=== PATIENT | female | born 1940 | race Caucasian/White ===

== ENCOUNTER 2017-08-14 18:28 | Inpatient (IN) | payer OTHER ==
[~2017-08-14] VITALS: Ht 162.6 cm; Wt 87.1 kg
[~2017-08-14 18:28] MED LIST: KEFLEX500 MG PO
[2017-08-14 18:32] VITALS: BP 151/68
[2017-08-14] MEDS ORDERED: BACTRIM DS TAB1 EACH PO (18:39)
[2017-08-14] MEDS ORDERED: NORVASC10 MG PO (18:40)
[2017-08-14] MEDS ORDERED: CITRATE OF MAG296 M1 PO (18:40)
[2017-08-14] MEDS ORDERED: COZAAR 50 MG TA50 M2 PO (18:40)
[2017-08-14] MEDS ORDERED: NAMENDA 10 MG T10 MG PO ×2 (18:41→18:43)
[2017-08-14] MEDS ORDERED: CALCIUM 600 +1 EAC1 PO (18:41)
[2017-08-14] MEDS ORDERED: UNICOMPLEX M TA1 TA1 PO (18:41)
[2017-08-14] MEDS ORDERED: ASPIRIN325 PO (18:41)
[2017-08-14] MEDS ORDERED: BENADRYL25 MG PO (18:42)
[2017-08-14] MEDS ORDERED: MYRBETRIQ25 MG PO (18:42)
[2017-08-14] MEDS ORDERED: ALLERCLEAR D-21 EACH PO (18:43)
[2017-08-14] MEDS ORDERED: ATENOLOL 50MG T50 M1 PO (18:43)
[2017-08-14] MEDS ORDERED: FIBER0.52 G1 PO (18:45)
[2017-08-14] MEDS ORDERED: FOSAMAX 70 MG T70 MG PO (18:45)
[2017-08-14 19:28] LABS: HEMATOCRIT 39.2 % (37.0-47.0); HEMOGLOBIN 13.2 gm/dL (12.0-15.0); MCHC 33.6 g/dL (28.0-37.0); MCV 92.1 fL (80.0-100.0); MPV 8.4 fl. (7.2-11.1); NUCLEATED RBCS 0 /100WBC; PLATELET COUNT* 193 thou/uL (150-400); RBC 4.25 mil/uL (4.20-5.00); RDW-CV 13.8 % (10.5-14.5); WBC 26.5 thou/uL (4.0-11.0)
[2017-08-14 19:37] LABS: CALCIUM 9.5 mg/dL (8.5-10.1); CREATININE 1.5 mg/dL (0.6-1.3)
[2017-08-14 19:42] LABS: ALBUMIN 2.9 g/dL (3.4-5.0); TOTAL BILIRUBIN 0.9 mg/dL (<0.1-1.0); TOTAL PROTEIN 7.5 g/dL (6.4-8.2)
[2017-08-14 19:54] LABS: ABSOLUTE LYMPHOCYTES 0.8 thou/uL (0.8-5.3); ABSOLUTE MONOCYTES 0.5 thou/uL (0.0-1.2); ABSOLUTE NEUTROPHILS 25.2 thou/uL (1.6-8.1); PLATELET ESTIMATE ADEQUATE
[2017-08-14 21:18] LABS: URINE BILIRUBIN NEGATIVE (Negative); URINE BLOOD NEGATIVE (Negative); URINE CLARITY CLEAR; URINE COLOR YELLOW; URINE GLUCOSE-RANDOM NEGATIVE (Negative); URINE KETONES NEGATIVE (Negative); URINE LEUKOCYTES-REFLEX NEGATIVE (Negative); URINE NITRITE-REFLEX NEGATIVE (Negative); URINE PROTEIN 1+ (Negative); URINE UROBILINOGEN 0.2 E.U./dl (0.2-1.0)
[2017-08-14 23:00] VITALS: BP 156/67
[2017-08-15] VITALS (15 sets, daily range): BP systolic 88–150; BP diastolic 36–64
[2017-08-15 08:06] LABS: HEMATOCRIT 38.4 % (37.0-47.0); HEMOGLOBIN 12.9 gm/dL (12.0-15.0); MCH 31.4 pg (26.0-34.0); MCHC 33.5 g/dL (28.0-37.0); MCV 93.6 fL (80.0-100.0); MPV 9.5 fl. (7.2-11.1); RBC 4.1 mil/uL (4.20-5.00); RDW-CV 14.1 % (10.5-14.5); WBC 27.3 thou/uL (4.0-11.0)
[2017-08-15 08:21] LABS: ALBUMIN 2.2 g/dL (3.4-5.0); CALCIUM 7.8 mg/dL (8.5-10.1); CREATININE 1.4 mg/dL (0.6-1.3); TOTAL BILIRUBIN 0.6 mg/dL (<0.1-1.0); TOTAL PROTEIN 5.6 g/dL (6.4-8.2)
[2017-08-15 09:33] LABS: APTT 33.2 Seconds (25.0-31.3); INR 1.1; PROTIME 11.1 Seconds (9.20-11.50)
--- NOTE | 2017-08-15 10:12 | EKG ---
[place] [address] ELECTROCARDIOGRAM REPORT Name: OCTAVIA DEE Room: [address] ADM IN M.R.#: [id number] Admission: 08/14/17 Attend Phys: Bhavya Reed MD Discharge: Date of : 40 Report #: [id number] THIS REPORT FOR: //name// [facility] ED Test Date: 2017-08-14 Test Time: 22:54:15 Pat Name: OCTAVIA DEE Department: Room: [address] Gender: F Move Coordinator: BALA : 1940 Requested By: Rosey Corcoran Order Number: [id number] Reading MD: Roland Overotn Measurements Intervals [place] Rate: 75 P: 60 [place]: 179 QRS: -6 QRSD: 89 T: -1 QT: 397 QTc: 444 Interpretive Statements Sinus rhythm Ventricular premature complex Probable left atrial enlargement Anterior infarct, old Compared to ECG 08/25/2008 12:51:28 Ventricular premature complex(es) now present Myocardial infarct finding now present Electronically Signed On 08-15-2017 10:12:35 CDT by Roland Overton [email or web address] <ELECTRONICALLY SIGNED> By: Juanito Overton MD, [facility] 08/15/17 1012 2254 2254 Juanito Overton MD, [facility] /EPI
--- NOTE | 2017-08-15 10:15 | EKG ---
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 : 1940 Requested By: Bhvaya Reed Order Number: [id number] Reading MD: Roland Overton Measurements Intervals [place] Rate: 123 P: [place]: QRS: -1 QRSD: 91 T: -59 QT: 341 QTc: 488 Interpretive Statements Atrial fibrillation Anterior infarct, old Borderline ST depression, diffuse leads Compared to ECG 08/25/2008 12:51:28 Myocardial infarct finding now present ST (T wave) deviation now present Sinus rhythm no longer present Electronically Signed On 08-15-2017 10:15:43 CDT by Roland Overton [email or web address] <ELECTRONICALLY SIGNED> By: Juanito Overton MD, [facility] 08/15/17 1015 0640 0640 Juanito Overton MD, [facility] /EPI
--- NOTE | 2017-08-15 10:17 | EKG ---
[place] [address] ELECTROCARDIOGRAM REPORT Name: OCTAVIA DEE Room: [address] ADM IN M.R.#: [id number] Admission: 08/14/17 Attend Phys: Bhavya Reed MD Discharge: Date of : 40 Report #: [id number] THIS REPORT FOR: //name// [facility] Test Date: 2017-08-15 Test Time: 09:47:25 Pat Name: OCTAVIA DEE Department: Room: [address] Gender: F Station Supervisor: [facility] : 1940 Requested By: Bhavya Reed Order Number: [id number] Reading MD: Roland Overton Measurements Intervals [place] Rate: 61 P: 63 [place]: 184 QRS: -3 QRSD: 90 T: -4 QT: 429 QTc: 432 Interpretive Statements Sinus rhythm Anterior infarct, old Compared to ECG 08/25/2008 12:51:28 Myocardial infarct finding now present Electronically Signed On 08-15-2017 10:17:40 CDT by Roland Overton [email or web address] <ELECTRONICALLY SIGNED> By: Juanito Overton MD, [facility] 08/15/17 1017 0947 0947 Juanito Overton MD, [facility] /EPI
[2017-08-16] VITALS (21 sets, daily range): BP systolic 91–135; BP diastolic 34–69
[2017-08-16 02:10] LABS: GLYCOHEMOGLOBIN (HGB A1C) 5.1 % (4.8-5.6)
[2017-08-16 04:44] LABS: ABSOLUTE EOSINOPHILS 0.1 thou/uL (0.0-0.7); ABSOLUTE MONOCYTES 0.9 thou/uL (0.0-1.2); ABSOLUTE NEUTROPHILS 15.9 thou/uL (1.6-8.1); EOSINOPHILS 0.7 %; HEMATOCRIT 31.1 % (37.0-47.0); LYMPHOCYTES 5.4 %; MCH 30.8 pg (26.0-34.0); MCHC 32.8 g/dL (28.0-37.0); MONOCYTES 4.9 %; NUCLEATED RBCS 0 /100WBC; PLATELET COUNT* 166 thou/uL (150-400); RBC 3.31 mil/uL (4.20-5.00); RDW-CV 14.2 % (10.5-14.5); WBC 17.8 thou/uL (4.0-11.0)
[2017-08-16 05:13] LABS: HEMOGLOBIN 10.2 gm/dL (12.0-15.0)
[2017-08-16 05:23] LABS: ALBUMIN 1.8 g/dL (3.4-5.0); CALCIUM 7.1 mg/dL (8.5-10.1); CREATININE 1.4 mg/dL (0.6-1.3); MAGNESIUM 2.3 mg/dL (1.8-2.4); POTASSIUM 4.1 mmol/L (3.5-5.1); TOTAL BILIRUBIN 0.2 mg/dL (<0.1-1.0); TOTAL PROTEIN 4.9 g/dL (6.4-8.2)
--- NOTE | 2017-08-16 12:11 | EKG ---
[place] [address] ELECTROCARDIOGRAM REPORT Name: OCTAVIA DEE Room: [address] ADM IN M.R.#: [id number] Admission: 08/14/17 Attend Phys: Bhavya Reed MD Discharge: Date of : 40 Report #: [id number] THIS REPORT FOR: //name// [facility] Test Date: 2017-08-16 Test Time: 07:06:56 Pat Name: OCTAVIA DEE Department: Room: [address] Gender: F Financial Aid Administrator: TEJAL : 1940 Requested By: Bhavya Reed Order Number: [id number] Reading MD: Roland Overton Measurements Intervals [place] Rate: 107 P: [place]: QRS: -3 QRSD: 88 T: -22 QT: 337 QTc: 450 Interpretive Statements Atrial fibrillation Anterior infarct, old Compared to ECG 08/15/2017 09:47:25 Sinus rhythm no longer present Myocardial infarct finding still present Electronically Signed On 08-16-2017 12:10:54 CDT by Roland Overton [email or web address] <ELECTRONICALLY SIGNED> By: Juanito Overton MD, [facility] 08/16/17 1210 5 5 Juanito Overton MD, [facility] /EPI
[2017-08-17] VITALS (12 sets, daily range): BP systolic 122–158; BP diastolic 41–80
[2017-08-17 02:17] LABS: HEMATOCRIT 30.4 % (37.0-47.0); MCH 31.2 pg (26.0-34.0); MCHC 32.8 g/dL (28.0-37.0); MCV 95.3 fL (80.0-100.0); MPV 8.9 fl. (7.2-11.1); RBC 3.19 mil/uL (4.20-5.00); RDW-CV 13.9 % (10.5-14.5); WBC 12.7 thou/uL (4.0-11.0)
[2017-08-17 02:27] LABS: ALBUMIN 1.7 g/dL (3.4-5.0); CALCIUM 7.6 mg/dL (8.5-10.1); CREATININE 1.4 mg/dL (0.6-1.3); MAGNESIUM 2.4 mg/dL (1.8-2.4); POTASSIUM 4.4 mmol/L (3.5-5.1); TOTAL BILIRUBIN 0.2 mg/dL (<0.1-1.0); TOTAL PROTEIN 5.4 g/dL (6.4-8.2)
--- NOTE | 2017-08-17 12:16 | CON ---
[address] [address] CONSULTATION Name: OCTAVIA DEE Room: [address] IN M.R.#: [id number] Admission: 08/14/17 Attend Phys: Bhavya Reed MD Discharge: Date of : 40 Report #: [id number] THIS REPORT FOR: //name// CC: Ibrahima Reed DATE OF SERVICE: 08/17/2017 INFECTIOUS DISEASE CONSULTATION ATTENDING PHYSICIAN: Dr. Reed. REASON FOR EVALUATION: Cecal perforation complicated by peritonitis with sepsis. HISTORY OF PRESENT ILLNESS: Chart reviewed, the patient examined. This is a 76-year-old with history of some dementia who apparently was doing fairly well; however, 2 days prior to admission, had developed progressive severe abdominal pain that was worsening, associated with nausea, developed fever as well and more recently had developed vomiting, question of adverse drug effect, had been on antibiotics for urinary tract infection. Evaluation including imaging, there is question of some pneumoperitoneum. She was taken emergently to surgery, was found to have perforation of her cecum, large left ovarian cyst, underwent ileocecotomy, [id number]-[id number] ileocolonic anastomosis and excision of left ovarian mass. She was transferred to Intensive Care Unit postop; however, she is slowly responding, still has significant amount of pain. She does have an NG in place, does arouse. She states the pain is somewhat improved. At this point, she is afebrile, not on any significant hemodynamic support. She was empirically placed on piperacillin and tazobactam, culture from the abdominal fluid now with growth of Streptococcus anginosus group. Blood cultures are sterile thus far. ALLERGIES: None known. MEDICATIONS: Include enoxaparin, pantoprazole, insulin, metoprolol, Zosyn, losartan, fentanyl, p.r.n. analgesics, antiemetics. PAST MEDICAL HISTORY: History of Alzheimer disease, chronic constipation, history of bowel obstruction, bladder dysfunction with urinary tract infections. SOCIAL HISTORY: Nonsmoker, no ethanol. FAMILY HISTORY: Noncontributory. REVIEW OF SYSTEMS: Not obtainable. PHYSICAL EXAMINATION: [place] [address] CONSULTATION Name: OCTAVIA DEE Room: [address] IN [facility]#: [id number] Admission: 08/14/17 Attend Phys: Bhavya Reed MD Discharge: Date of : 40 Report #: [id number] GENERAL: She is in moderate distress at this point. She does arouse, seems to make eye contact, appears chronically ill, undernourished. VITAL SIGNS: Temperature 98.4, pulse 64, respiration 18, blood pressure 158/57. SKIN: Warm. HEENT: Nasal cannula oxygen in place. NG tube in place. NECK: Supple. LUNGS: Scattered few coarse breath sounds. HEART: Regular. I do not appreciate any murmur. ABDOMEN: Somewhat distended, soft. She does have a drain in place. There are no overt peritoneal signs. GENITOURINARY: Deferred. RECTAL: Deferred. LABORATORY DATA: Prealbumin of 10.7. CBC: White count of 12.7, H and H 10.0 and 30.4, platelets of 164. Electrolytes: Sodium 141, potassium 4.4, chloride 109, bicarbonate 26, anion gap of 6, BUN and creatinine 22 and 1.4, glucose of 213. LFTs unremarkable. Albumin 1.7, total protein 5.4. Estimated GFR of 37. Cultures described above with strep anginosus group. Blood cultures are sterile thus far. ASSESSMENT: Perforated cecum complicated by peritonitis, we will continue parenteral therapy at this point, she certainly has no immediate ability to take oral. We will add and/or simplify regimen at this point. She is certainly at risk for nosocomial-related infectious complications as well. We will add incentive spirometer, it is clear she is not taking deep breaths. Certainly increasing activity as allowed and wean off support. <ELECTRONICALLY SIGNED> By: José Miguel Urban MD 08/17/17 1216 1045 1123Jocarmelo Urban MD /nt
--- NOTE | 2017-08-17 13:49 | 2DMMODE ---
[place] [address] 2 D/M-MODE ECHOCARDIOGRAM Name: LUIZOCTAVIA HORACIO Room: [address] IN [facility]#: [id number] Admission: 08/14/17 Attend Phys: Bhavya Reed, Discharge: Date of : 40 Date of Service: 08/17/17 1349 Report #: [id number] THIS REPORT FOR: //name// APPROVED REPORT Study performed: 08/17/2017 11:21:42 EXAM: Comprehensive 2D, Doppler, and color-flow Echocardiogram Patient Location: In-Patient Room #: [facility] Status: routine BSA: 1.85 HR: 68 bpm BP: 138/49 mmHg Rhythm: NSR Other Information Study Quality: Good Indications Atrial Fibrillation 2D Dimensions LVEF(%): 78.40 (>50%) IVSd: 9.33 (7-11mm) LVOT Diam: 18.06 (18-24mm) LVDd: 50.94 mm PWd: 10.99 (7-11mm) Ascending Ao: 30.15 (22-36mm) LVDs: 26.86 (25-40mm) Aortic Root: 29.69 mm Langley's LVEF: 78.40 % Volumes Left Atrial Volume (Systole) LA ESV Index: 35.80 mL/m2 Aortic Valve AoV Peak Davian.: 1.54 m/s AO Peak Gr.: 9.44 mmHg LVOT Max P.56 mmHg AO Mean Gr.: 5.33 mmHg LVOT Mean P.83 mmHg LVOT Max V: 1.18 m/s AO V2 VTI: 33.53 cm LVOT Mean V: 0.77 m/s FERNANDA (VTI): 2.28 cm2 LVOT V1 VTI: 29.85 cm Mitral Valve E/A Ratio: 1.70 [place] [address] 2 D/M-MODE ECHOCARDIOGRAM Name: LUIZOCTAVIA HORACIO Room: [address] IN .R.#: [id number] Admission: 08/14/17 Attend Phys: Bhavya Reed, Discharge: Date of : 40 Date of Service: 08/17/17 1349 Report #: [id number] MV Decel. Time: 153.32 ms MV E Max Davian.: 1.53 m/s MV PHT: 44.46 ms MVA (PHT): 4.95 cm2 TDI E/Lateral E': 13.91 E/Medial E': 15.30 Medial E' Davian.: 0.10 m/s Lateral E' Davian.: 0.11 m/s Pulmonary Valve PV Peak Davian.: 0.90 m/s PV Peak Gr.: 3.27 mmHg Tricuspid Valve TR Peak Gr.: 36.26 mmHg RVSP: 41.00 mmHg Left Ventricle The left ventricle is normal size. There is normal LV segmental wall motion. There is normal left ventricular wall thickness. Left ventricular systolic function is normal. The left ventricular ejection fraction is within the normal range. LVEF is 60-65%. The left ventricular diastolic function is normal. Right Ventricle The right ventricle is normal size. The right ventricular systolic function is normal. Atria Left atrium is borderline dilated. The right atrium size is normal. Aortic Valve The aortic valve is normal in structure. No aortic regurgitation is present. There is no aortic valvular stenosis. Mitral Valve The mitral valve is normal in structure. Mild mitral regurgitation. No evidence of mitral valve stenosis. Tricuspid Valve The tricuspid valve is normal in structure. Mild tricuspid regurgitation. The RVSP is 40-45 mmHg. Pulmonic Valve The pulmonary valve is normal in structure. [place] [address] 2 D/M-MODE ECHOCARDIOGRAM Name: OCTAVIA DEE Room: [address] IN .R.#: [id number] Admission: 08/14/17 Attend Phys: Bhavya Reed, Discharge: Date of : 40 Date of Service: 08/17/17 1349 Report #: [id number] Great Vessels The aortic root is normal in size. IVC is normal in size and collapses with >50% inspiration Pericardium There is no pericardial effusion. <Conclusion> The left ventricle is normal size. There is normal left ventricular wall thickness. Left ventricular systolic function is normal. The left ventricular ejection fraction is within the normal range. LVEF is 60-65%. The left ventricular diastolic function is normal. The right ventricle is normal size. Left atrium is borderline dilated. The aortic valve is normal in structure. The mitral valve is normal in structure. Mild mitral regurgitation. The tricuspid valve is normal in structure. Mild tricuspid regurgitation. The RVSP is 40-45 mmHg. IVC is normal in size and collapses with >50% inspiration There is no pericardial effusion. There is normal LV segmental wall motion. <ELECTRONICALLY SIGNED> By: Ibrahima Galdamez MD, FACC 08/17/17 1349 1349 1349 Ibrahima Galdamez MD, FACC /INF
[2017-08-18 05:00] VITALS: BP 153/64
[2017-08-18 05:29] LABS: HEMATOCRIT 34.5 % (37.0-47.0); HEMOGLOBIN 11.2 gm/dL (12.0-15.0); MCH 30.7 pg (26.0-34.0); MCHC 32.5 g/dL (28.0-37.0); MCV 94.4 fL (80.0-100.0); MPV 8.6 fl. (7.2-11.1); NUCLEATED RBCS 0 /100WBC; PLATELET COUNT* 209 thou/uL (150-400); RBC 3.66 mil/uL (4.20-5.00); RDW-CV 13.7 % (10.5-14.5); WBC 13.5 thou/uL (4.0-11.0)
[2017-08-18 05:34] LABS: CALCIUM 7.9 mg/dL (8.5-10.1); CREATININE 1.1 mg/dL (0.6-1.3); MAGNESIUM 1.8 mg/dL (1.8-2.4); PHOSPHORUS* 1.6 mg/dL (2.5-4.9); POTASSIUM 4.2 mmol/L (3.5-5.1)
[2017-08-18 05:55] LABS: ABSOLUTE EOSINOPHILS 0.4 thou/uL (0.0-0.7); ABSOLUTE LYMPHOCYTES 0.9 thou/uL (0.8-5.3); ABSOLUTE MONOCYTES 0.9 thou/uL (0.0-1.2); ABSOLUTE NEUTROPHILS 11.2 thou/uL (1.6-8.1); ANISOCYTOSIS 1+; PLATELET ESTIMATE ADEQUATE; POIKILOCYTOSIS 1+
[2017-08-18 07:30] VITALS: BP 152/68
[2017-08-18 12:27] VITALS: BP 154/76
[2017-08-18 16:00] VITALS: BP 147/66
[2017-08-18 21:03] VITALS: BP 154/82
[2017-08-18 23:35] VITALS: BP 140/67
[2017-08-19 03:57] VITALS: BP 156/77
[2017-08-19 05:32] LABS: HEMATOCRIT 33.5 % (37.0-47.0); HEMOGLOBIN 11.2 gm/dL (12.0-15.0); MCH 31.4 pg (26.0-34.0); MCHC 33.5 g/dL (28.0-37.0); MCV 93.7 fL (80.0-100.0); MPV 8.5 fl. (7.2-11.1); RBC 3.58 mil/uL (4.20-5.00); RDW-CV 13.7 % (10.5-14.5); WBC 14.2 thou/uL (4.0-11.0)
[2017-08-19 05:59] LABS: ALBUMIN 1.5 g/dL (3.4-5.0); CALCIUM 8.2 mg/dL (8.5-10.1); CREATININE 0.9 mg/dL (0.6-1.3); POTASSIUM 3.9 mmol/L (3.5-5.1); TOTAL BILIRUBIN 0.4 mg/dL (<0.1-1.0); TOTAL PROTEIN 5.7 g/dL (6.4-8.2)
[2017-08-19 07:30] VITALS: BP 145/75
[2017-08-19 11:51] VITALS: BP 156/65
[2017-08-19 16:00] VITALS: BP 122/54
[2017-08-19 20:14] VITALS: BP 147/68
[2017-08-20] VITALS: BP 110/71
[2017-08-20 04:00] VITALS: BP 125/65
[2017-08-20 05:03] LABS: HEMATOCRIT 33.5 % (37.0-47.0); HEMOGLOBIN 11.2 gm/dL (12.0-15.0); MCH 30.9 pg (26.0-34.0); MCHC 33.4 g/dL (28.0-37.0); MCV 92.7 fL (80.0-100.0); MPV 8.7 fl. (7.2-11.1); RBC 3.61 mil/uL (4.20-5.00); RDW-CV 13.6 % (10.5-14.5); WBC 12.5 thou/uL (4.0-11.0)
[2017-08-20 05:15] LABS: ALBUMIN 1.4 g/dL (3.4-5.0); CALCIUM 8.3 mg/dL (8.5-10.1); CREATININE 1.1 mg/dL (0.6-1.3); TOTAL BILIRUBIN 0.3 mg/dL (<0.1-1.0); TOTAL PROTEIN 5.7 g/dL (6.4-8.2)
[2017-08-20 05:24] LABS: MAGNESIUM 1.8 mg/dL (1.8-2.4); PHOSPHORUS* 3.3 mg/dL (2.5-4.9)
[2017-08-20 07:53] VITALS: BP 141/67
[2017-08-20 12:02] VITALS: BP 135/93
[2017-08-20 16:00] VITALS: BP 133/52
[2017-08-20 20:00] VITALS: BP 141/58
[2017-08-21] VITALS: BP 124/49
[2017-08-21 02:43] LABS: HEMATOCRIT 30.7 % (37.0-47.0); HEMOGLOBIN 10.2 gm/dL (12.0-15.0); MCHC 33.1 g/dL (28.0-37.0); MCV 93.5 fL (80.0-100.0); MPV 8.9 fl. (7.2-11.1); RBC 3.29 mil/uL (4.20-5.00); RDW-CV 13.9 % (10.5-14.5); WBC 12.1 thou/uL (4.0-11.0)
[2017-08-21 02:46] LABS: CALCIUM 7.9 mg/dL (8.5-10.1); CREATININE 1.1 mg/dL (0.6-1.3); MAGNESIUM 1.4 mg/dL (1.8-2.4); PHOSPHORUS* 3.3 mg/dL (2.5-4.9); POTASSIUM 3.6 mmol/L (3.5-5.1)
[2017-08-21 04:14] VITALS: BP 108/43
[2017-08-21 08:24] VITALS: BP 110/42
[2017-08-21 20:40] VITALS: BP 133/57
[2017-08-22 00:50] VITALS: BP 123/39
[2017-08-22 02:44] LABS: HEMATOCRIT 28.9 % (37.0-47.0); HEMOGLOBIN 9.8 gm/dL (12.0-15.0); MCH 31.2 pg (26.0-34.0); MCHC 33.8 g/dL (28.0-37.0); MCV 92.3 fL (80.0-100.0); MPV 8.8 fl. (7.2-11.1); RBC 3.14 mil/uL (4.20-5.00); RDW-CV 13.8 % (10.5-14.5); WBC 10.6 thou/uL (4.0-11.0)
[2017-08-22 02:48] LABS: CALCIUM 8.2 mg/dL (8.5-10.1); CREATININE 1.3 mg/dL (0.6-1.3); MAGNESIUM 1.8 mg/dL (1.8-2.4)
[2017-08-22 02:55] LABS: URINE BILIRUBIN NEGATIVE (Negative); URINE BLOOD TRACE (Negative); URINE CLARITY CLEAR; URINE COLOR YELLOW; URINE GLUCOSE-RANDOM NEGATIVE (Negative); URINE KETONES NEGATIVE (Negative); URINE LEUKOCYTES-REFLEX NEGATIVE (Negative); URINE NITRITE-REFLEX NEGATIVE (Negative); URINE PROTEIN NEGATIVE (Negative); URINE UROBILINOGEN 0.2 E.U./dl (0.2-1.0)
[2017-08-22 04:54] VITALS: BP 103/41
[2017-08-22 08:10] VITALS: BP 126/41
--- NOTE | 2017-08-22 13:05 | EKG ---
[place] [address] ELECTROCARDIOGRAM REPORT Name: OCTAVIA DEE Room: [address] ADM IN M.R.#: [id number] Admission: 08/14/17 Attend Phys: Bhavya Reed MD Discharge: Date of : 40 Report #: [id number] THIS REPORT FOR: //name// 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: 27 : 1940 Requested By: Isamar Case Order Number: [id number] Reading MD: Nguyễn Brady Measurements Intervals [place] Rate: 95 P: [place]: QRS: 7 QRSD: 85 T: 2 QT: 393 QTc: 494 Interpretive Statements Atrial fibrillation Probable anteroseptal infarct, old Borderline T abnormalities, inferior leads Compared to ECG 08/16/2017 07:06:56 T-wave abnormality now present Myocardial infarct finding still present Electronically Signed On 08-22-2017 13:05:43 CDT by Nguyễn Brady [email or web address] <ELECTRONICALLY SIGNED> By: Nguyễn Brady MD, [facility] 08/22/17 1305 0819 0819 Nguyễn Brady MD, [facility] /EPI
--- NOTE | 2017-08-22 13:09 | EKG ---
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 : 1940 Requested By: Isamar Case Order Number: [id number] Reading MD: Nguyễn Brady Measurements Intervals [place] Rate: 104 P: [place]: QRS: 4 QRSD: 90 T: 0 QT: 376 QTc: 495 Interpretive Statements Atrial fibrillation Anterior infarct, old Borderline T abnormalities, inferior leads Compared to ECG 08/16/2017 07:06:56 T-wave abnormality now present Myocardial infarct finding still present Electronically Signed On 08-22-2017 13:09:05 CDT by Nguyễn Brady [email or web address] <ELECTRONICALLY SIGNED> By: Nguyễn Brady MD, [facility] 08/22/17 1309 0928 0928 Nguyễn Brady MD, [facility] /EPI
[2017-08-22 16:00] VITALS: BP 117/47
[2017-08-22 20:00] VITALS: BP 126/54
[2017-08-23 08:20] VITALS: BP 105/43
[2017-08-23 16:00] VITALS: BP 120/55
[2017-08-23 20:10] VITALS: BP 118/42
[2017-08-24 00:22] VITALS: BP 113/42
[2017-08-24 07:13] LABS: HEMATOCRIT 29.9 % (37.0-47.0); HEMOGLOBIN 9.9 gm/dL (12.0-15.0); MCH 31.1 pg (26.0-34.0); MCV 94.1 fL (80.0-100.0); MPV 8.9 fl. (7.2-11.1); RBC 3.18 mil/uL (4.20-5.00); RDW-CV 14.3 % (10.5-14.5); WBC 11.5 thou/uL (4.0-11.0)
[2017-08-24 07:25] LABS: CALCIUM 7.7 mg/dL (8.5-10.1); CREATININE 1.4 mg/dL (0.6-1.3); MAGNESIUM 1.7 mg/dL (1.8-2.4); PHOSPHORUS* 3.5 mg/dL (2.5-4.9); POTASSIUM 3.8 mmol/L (3.5-5.1)
[2017-08-24 07:53] VITALS: BP 118/62
--- NOTE | 2017-08-24 13:54 | OP ---
[facility] [address] [place] [address] OPERATIVE REPORT Name: OCTAVIA DEE Room: [address] IN M.R.#: [id number] Admission: 08/14/17 Attend Phys: Bhavya Reed MD Discharge: Date of : 40 Report #: [id number] THIS REPORT FOR: //name// CC: Ibrahima Underwood DATE OF SERVICE: 08/14/2017 DATE OF OPERATION: 08/14/2017 and 08/15/2017 as it happened over midnight. PREOPERATIVE DIAGNOSIS: Perforated bowel. POSTOPERATIVE DIAGNOSES: 1. Perforated right colon. 2. Large left ovarian cyst, somewhat concerning for a neoplasm. SURGEON: Nat Menendez M.D. BROOM HANDLE DIPPER: David Colvin DO ESTIMATED BLOOD LOSS: 50. COMPLICATIONS: None. FINDINGS: Perforation of right cecum, fragmented portions of what I believe to be appendix. This was likely severe perforated appendicitis. There were gabi stool contents upon opening of the abdomen as the patient did have preoperative peritonitis on physical exam. ANESTHESIA: GET. PROCEDURES: 1. Open right ileocolic resection with anastomosis. 2. Left ovarian cystectomy. DESCRIPTION OF PROCEDURE: Full informed consent obtained preoperatively with the patient and her daughter, . I had an extensive discussion with them about all risks, benefits, and alternatives. The patient was prepped and draped in standard sterile fashion. Timeout performed and all in agreement. We began with a midline laparotomy, opening of the abdomen. Murky fluid initially encountered. Looking in the right abdomen, there was gabi stool contents in the right lower abdomen. This was cultured. We suctioned it out. There was severe inflammatory process right lower quadrant, portion of sigmoid and small bowel covering this area. These were removed from this area. I inspected them carefully and milked contents past these areas in [place] [address] OPERATIVE REPORT Name: OCTAVIA DEE Room: [address] IN [facility]#: [id number] Admission: 08/14/17 Attend Phys: Bhavya Reed MD Discharge: Date of : 40 Report #: [id number] bowel. I did not see any injury. A large left ovarian cyst was noted that was somewhat concerning for neoplasm. I began by trying to identify the base of the appendix. There were multiple small fragments adhered to portions of the right lower quadrant abdominal wall as well as the retroperitoneum. I irrigated solution here with several liters of warm normal saline. With gentle pressure on the bowel there was bubbling coming from a large fibrinous exudate patch on the bowel. This appeared to be a hole on the cecum. Palpating the right colon it did not feel like an internal malignancy. This was most suspicious for perforated appendicitis; however, the cecum itself had severe inflammatory process with necrosis and I did not believe there will be a safe way to repair this hole directly. Therefore, I chose to proceed with ileocolic resection. I scored along the white line of Toldt coming up to the hepatic flexure. Small bowel was gently mobilized. I made a small window beneath the terminal ileum. Blue load CT stapler fired across it. I took down the mesentery with hemostats up towards the mid right colon. I transected this portion of the colon with a blue load CT stapler. Next, I brought the bowel together in [id number] in a peristaltic fashion. Using 3-0 silks I made small enterotomies on either side. There was minimal spillage of contents at this time. I fired the 70 CT stapler through this to create a common channel that appeared to be healthy and viable. I oversewed the common channel with 3-0 Vicryl. I milked contents past it with distention at the site. There was no leakage. I oversewed with serosal bites of 3-0 silk. The entire anastomosis appeared to have excellent integrity. This was in the mid right colon. The distal extent of the cecum itself had mild change in color, so I did take additional portion of the proximal cecum to make sure the visible vascularity of the bowel be perfect. No additional mesentery was taken here. I would view this area later on and again the vascularity appeared perfect. Next, I turned my attention to the left ovarian cyst. It was elevated off the ovary. I scored along clear fibrinous material around it. Ureter was noted to be in the left pelvis well away from this. A clamp was placed on the base of this cyst. It was excised with scalpel. There was no spillage of the cyst contents. A 3-0 silk tie was placed beneath it to tie this off. It appeared to be hemostatic. Next, I irrigated again with several liters of warm normal saline. I placed a 19-Italian drain in the pelvis to the right lower quadrant and anchored with 2-0 nylon, closed the fascia with PDS craniocaudal portions, irrigated the wound copiously and closed with abhi. Sponge, needle, instrument counts were correct x 2 at the end the case. The patient tolerated it well. <ELECTRONICALLY SIGNED> By: Nat Menendez MD 08/24/17 1354 1250 1319Darcy MD andrei Rosado
[2017-08-24 16:00] VITALS: BP 114/68
[2017-08-24 21:45] VITALS: BP 134/48
[2017-08-25 06:35] LABS: HEMATOCRIT 29.4 % (37.0-47.0); HEMOGLOBIN 9.8 gm/dL (12.0-15.0); MCH 31.4 pg (26.0-34.0); MCHC 33.2 g/dL (28.0-37.0); MCV 94.6 fL (80.0-100.0); MPV 8.7 fl. (7.2-11.1); RBC 3.11 mil/uL (4.20-5.00); RDW-CV 14.4 % (10.5-14.5); WBC 8.5 thou/uL (4.0-11.0)
[2017-08-25 06:39] LABS: CALCIUM 7.7 mg/dL (8.5-10.1); CREATININE 1.1 mg/dL (0.6-1.3); MAGNESIUM 1.6 mg/dL (1.8-2.4); POTASSIUM 3.9 mmol/L (3.5-5.1)
[2017-08-25 09:21] VITALS: BP 135/44
[2017-08-25 16:00] VITALS: BP 102/48
[2017-08-25 20:30] VITALS: BP 137/47
[2017-08-26] MEDS ORDERED: COZAAR 25 MG TA25 M1 PO (09:27)
[2017-08-26] MEDS ORDERED: PROTONIX40 M1 PO (09:27)
[2017-08-26] MEDS ORDERED: SORINE 80 MG TA80 M1 PO (09:27)
[2017-08-26] MEDS ORDERED: FLOMAX0.4 MG PO (09:27)
[2017-08-26] MEDS ORDERED: HYDROCODON-ACE1 EAC7 PO (09:27)
[2017-08-26] MEDS ORDERED: CARDIZEM CD240 MG PO (09:27)
[2017-08-26 13:02] VITALS: BP 149/63
[2017-08-26 20:15] VITALS: BP 147/54
[2017-08-27 00:21] VITALS: BP 142/58
[2017-08-27 04:19] VITALS: BP 140/63
[2017-08-27 08:00] VITALS: BP 153/62
[2017-08-27 14:40] VITALS: BP 149/63
[2017-08-27 14:47] VITALS: BP 149/63
--- NOTE | 2017-09-07 08:22 | CON ---
[address] [address] CONSULTATION Name: OCTAVIA DEE Room: [address] IN M.R.#: [id number] Admission: 08/14/17 Attend Phys: Bhavya Reed MD Discharge: 08/27/17 Date of : 40 Report #: [id number] THIS REPORT FOR: //name// CC: Ibrahima Reed DATE OF SERVICE: 08/24/2017 ADDENDUM REASON FOR CONSULTATION: Dysphagia. The patient with recent history of ileocecectomy on 08/15/2017. She apparently has been complaining of dysphagia; therefore, we were consulted. The patient currently denies any significant dysphagia symptoms and reports that she is able to eat and drink without any problem. Video swallow studies have been ordered and pending. We will await the results of this study and make further recommendation. The patient is agreeable with plan. <ELECTRONICALLY SIGNED> By: Drea Hyde MD 09/07/17 0822 1522 2150Drea Hyde MD /nt
--- NOTE | 2017-09-07 08:22 | CON ---
[address] [address] CONSULTATION Name: OCTAVIA DEE Room: [address] IN M.R.#: [id number] Admission: 08/14/17 Attend Phys: Bhavya Reed MD Discharge: 08/27/17 Date of : 40 Report #: [id number] THIS REPORT FOR: //name// CC: Ibrahima Reed DICTATED BY: Mita BROWNP DATE OF SERVICE: 08/24/2017 REASON FOR CONSULTATION: Dysphagia. PRIMARY CARE PHYSICIAN: Ibrahima Novoa DO Please note at the time of this dictation, the patient was seen and physically examined by myself. REASON FOR CONSULTATION: Dysphagia. HISTORY OF PRESENT ILLNESS: This is a 76-year-old female who initially presented to the Emergency Room with diffuse abdominal pain, vomiting, inability to keep any liquids or solids down and she had been on an antibiotic for a UTI at that time. During her ER visit, it was noted on CAT scan she had a perforated colon. She was taken to surgery on 08/14/[address] Nat Menendez for an exploratory lap secondary to perforation of her colon at the cecum and had an ileocecectomy performed as well as a right ovarian cyst that was removed. The patient is postop day #10 and since her surgery and she was intubated in the ICU for several days, she has been complaining off and on regarding about difficulty swallowing. However, in going and in talking to the patient today, she states that is significantly improved and it is not near as bad as it was a week ago. She denies any acid reflux or any GERD-like sensation. She was able to take her pills without any difficulty this morning for the nurse and was able to eat breakfast without any difficulty. She has a video swallow still pending today. The patient is not the best historian, has some early onset of some dementia as well. 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 PAST SURGICAL HISTORY: Tonsillectomy, hysterectomy and her recent exploratory lap. ALLERGIES: No known drug allergies. MEDICATIONS: From home include magnesium citrate, amlodipine, losartan, [place] [address] CONSULTATION Name: OCTAVIA DEE Room: [address]#: [id number] Admission: 08/14/17 Attend Phys: Bhavya Reed MD Discharge: 08/27/17 Date of : 40 Report #: [id number] aspirin, Namenda, multivitamin, Caltrate, mirabegron, Benadryl, All Clear, Tenormin, fiber, and Fosamax. FAMILY HISTORY: Noncontributory. SOCIAL HISTORY: Denies any alcohol, tobacco or illegal drug use. REVIEW OF SYSTEMS: A 12-point review of systems is essentially negative except what is mentioned in the HPI. PHYSICAL EXAMINATION: VITAL SIGNS: Temperature 36.6, pulse 77, respirations 18, blood pressure 118/62. HEART: Regular rate and rhythm. LUNGS: Clear. ABDOMEN: Soft, positive bowel sounds in all 4 quadrants with no masses or tenderness noted. LABORATORY DATA: Hemoglobin 9.9, hematocrit 29.9, white count is 11.5, platelets 255, MCV is 99.1. Sodium 142, potassium 3.8, chloride 108, CO2 of 31, BUN is 29, creatinine 1.4 and her GFR is 37, and glucose is 132. IMPRESSION: 1. Dysphagia, improving. 2. Status post exploratory laparoscopic ileocolectomy and secondary to perforated cecum from appendicitis, postoperative day #10. 3. Chronic kidney disease. 4. Dementia. PLAN: 1. Video swallow is pending today. 2. We will await these results to see how she does. If the patient continues to complain of dysphagia, can look at doing an EGD tomorrow and make her n.p.o. in the a.m. Thank you for allowing us to participate in this patient's care. Please do not hesitate to call with any questions in regard to this consult. <ELECTRONICALLY SIGNED> By: Drea Hyde MD 09/07/17 0822 1218 0010Drea Hyde MD /nt
== END 2017-08-27 15:15 | DRG 853 ==
LOC: M.ERS 18:28 → M.ICU 21:49 → M.TBA-ER 21:49 → M.ICU 08-15 02:48 → M.2W 08-17 08:26 → M.ORTHSURG 08-21 16:48
PROVIDERS: Physician Assistant; Surgery; ADMIT Internal Medicine
PROC: 0DTB0ZZ Resection of Ileum, Open Approach (ICD-10-PCS; principal; 2017-08-14)
PROC: 0UB10ZZ Excision of Left Ovary, Open Approach (ICD-10-PCS; principal; 2017-08-14)
PROC: 02HV33Z Insertion of Infusion Device into Superior Vena Cava, Percutaneous Approach (ICD-10-PCS; 2017-08-15)
DX: A41.9 Sepsis, unspecified organism (principal); K63.1 Perforation of intestine (nontraumatic); K35.2 Acute appendicitis with generalized peritonitis; N17.9 Acute kidney failure, unspecified; K56.50 Intestinal adhesions [bands], unspecified as to partial versus complete obstruction; K59.00 Constipation, unspecified; G30.9 Alzheimer's disease, unspecified; F02.80 Dementia in other diseases classified elsewhere, unspecified severity, without behavioral disturbance, psychotic disturbance, mood disturbance, and anxiety; K59.09 Other constipation; R13.10 Dysphagia, unspecified; I12.9 Hypertensive chronic kidney disease with stage 1 through stage 4 chronic kidney disease, or unspecified chronic kidney disease; N83.9 Noninflammatory disorder of ovary, fallopian tube and broad ligament, unspecified; I48.0 Paroxysmal atrial fibrillation; N18.3 Chronic kidney disease, stage 3 (moderate); R33.9 Retention of urine, unspecified; Z86.73 Personal history of transient ischemic attack (TIA), and cerebral infarction without residual deficits; Z90.710 Acquired absence of both cervix and uterus

== ENCOUNTER → 2018-12-20 | Outpatient (CLI) | payer OTHER ==
[~2018-12-20] MED LIST changes: +ALLERCLEAR D-21 EACH PO; +ASPIRIN325 PO; +ATENOLOL 50MG T50 M1 PO; +BACTRIM DS TAB1 EACH PO; +BENADRYL25 MG PO; +CALCIUM 600 +1 EAC1 PO; +CARDIZEM CD240 MG PO; +CITRATE OF MAG296 M1 PO; +COZAAR 25 MG TA25 M1 PO; +COZAAR 50 MG TA50 M2 PO; +FIBER0.52 G1 PO; +FLOMAX0.4 MG PO; +FOSAMAX 70 MG T70 MG PO; +HYDROCODON-ACE1 EAC7 PO; +MYRBETRIQ25 MG PO; +NAMENDA 10 MG T10 MG PO; +NORVASC10 MG PO; +PROTONIX40 M1 PO; +SORINE 80 MG TA80 M1 PO; +UNICOMPLEX M TA1 TA1 PO
== END ==
LOC: M.RAD 15:46
DX: M85.89 Other specified disorders of bone density and structure, multiple sites (principal)

== ENCOUNTER 2019-05-06 13:47 | Inpatient (IN) | payer OTHER ==
[~2019-05-06] VITALS: Ht 160 cm; Wt 94.0 kg
[2019-05-06 14:00] VITALS: BP 148/63
[2019-05-06] MEDS ORDERED: COZAAR 25 MG TA25 M2 PO (14:07)
[2019-05-06] MEDS ORDERED: NORVASC 2.5 MG2.5 M1 PO (14:07)
[2019-05-06] MEDS ORDERED: CLARITIN10 MG PO (14:08)
[2019-05-06] MEDS ORDERED: ATENOLOL 25 MG25 M1 PO (14:08)
[2019-05-06] MEDS ORDERED: LIPITOR 20 MG T20 M1 PO (14:08)
[2019-05-06 14:31] LABS: HEMATOCRIT 39.2 % (37.0-47.0); HEMOGLOBIN 12.9 gm/dL (12.0-15.0); MCH 29.7 pg (26.0-34.0); MCV 90.2 fL (80.0-100.0); MPV 8.1 fl. (7.2-11.1); NUCLEATED RBCS 0 /100WBC; PLATELET COUNT* 280 thou/uL (150-400); RBC 4.35 mil/uL (4.20-5.00); RDW-CV 15.2 % (10.5-14.5); WBC 28.2 thou/uL (4.0-11.0)
[2019-05-06 14:43] LABS: CALCIUM 8.9 mg/dL (8.5-10.1); POTASSIUM 4.1 mmol/L (3.5-5.1)
[2019-05-06 14:44] LABS: APTT 31.1 Seconds (25.0-31.3); INR 1.1; PROTIME 11.7 Seconds (9.20-11.50)
[2019-05-06 14:50] LABS: ALBUMIN 2.1 g/dL (3.4-5.0); MAGNESIUM 1.8 mg/dL (1.8-2.4); TOTAL BILIRUBIN 0.8 mg/dL (<0.1-1.0); TOTAL PROTEIN 7.4 g/dL (6.4-8.2)
[2019-05-06 14:52] LABS: ABSOLUTE LYMPHOCYTES 1.1 thou/uL (0.8-5.3); ABSOLUTE MONOCYTES 0.8 thou/uL (0.0-1.2); ABSOLUTE NEUTROPHILS 26.2 thou/uL (1.6-8.1); PLATELET ESTIMATE ADEQUATE
[2019-05-06 15:10] LABS: BE 4.4 mmol/L (-2 to +3); PCO2 41.9 mmHg (35.0-45.0); pH 7.455 (7.340-7.450)
[2019-05-06 15:12] LABS: PO2 57.2 mmHg (75.0-100.0)
--- NOTE | 2019-05-06 18:26 | NUR ---
SPOKE WITH DR. AUGUSTIN VIA PHONE R/T PT BG OF 469 PRIOR TO MEAL AND AC INSULIN. NO FURTHER ORDERS AT THIS TIME. 20 UNITS INSULIN GIVEN PER ORDERS.
[2019-05-06 19:15] VITALS: BP 125/51
[2019-05-06 20:00] VITALS: BP 150/59
[2019-05-07] VITALS (8 sets, daily range): BP systolic 108–154; BP diastolic 54–74
[2019-05-07 00:16] LABS: INFLUENZA A ANTIGEN Negative (Negative); INFLUENZA B ANTIGEN Negative (Negative)
[2019-05-07 01:25] LABS: URINE BILIRUBIN NEGATIVE (Negative); URINE BLOOD TRACE (Negative); URINE CLARITY CLEAR; URINE COLOR YELLOW; URINE GLUCOSE-RANDOM 3+ (Negative); URINE KETONES NEGATIVE (Negative); URINE LEUKOCYTES NEGATIVE (Negative); URINE NITRITE NEGATIVE (Negative); URINE PROTEIN TRACE (Negative); URINE SPECIFIC GRAVITY 1.015 (1.005-1.030); URINE UROBILINOGEN 0.2 E.U./dl (0.2-1.0)
--- NOTE | 2019-05-07 04:57 | NUR ---
ASSUMED CARE OF PT AFTER REPORT AT 1915. PT A&OX4. FORGETFUL AT TIMES. VSS. ADMISSION HISTORY & PHYSICAL ASSESSMENT COMPLETED AND CHARTED. PT ON O2 AT 2L NC. PT TRACING SR/SB ON TELE. ORIENTED TO ROOM & CALL LIGHT. PT UP WITH 1 ASSIST TO BSC. PT COMPLAINED OF CHEST & BACK PAIN-DR AUGUSTIN MADE AWARE WITH NEW ORDER. PAIN MED GIVEN PER JUN. URINE SPECIMEN & FLU SWAB SENT TO LAB. FALL PRECAUTION IN PLACE. PT DTR REQUESTING TO INFORM HER FIRST REGARDING CHANGE IN MEDICATIONS-WILL COMMUNICATE THIS TO ONCOMING RN. CALL LIGHT WITHIN REACH.
[2019-05-07 10:18] LABS: HEMATOCRIT 39.4 % (37.0-47.0); HEMOGLOBIN 12.8 gm/dL (12.0-15.0); MCH 29.1 pg (26.0-34.0); MCHC 32.4 g/dL (28.0-37.0); MCV 89.8 fL (80.0-100.0); MPV 8.3 fl. (7.2-11.1); NUCLEATED RBCS 0 /100WBC; PLATELET COUNT* 283 thou/uL (150-400); RBC 4.39 mil/uL (4.20-5.00); RDW-CV 15.1 % (10.5-14.5); WBC 27.9 thou/uL (4.0-11.0)
[2019-05-07 10:24] LABS: ABSOLUTE EOSINOPHILS 0.1 thou/uL (0.0-0.7); ABSOLUTE LYMPHOCYTES 1.1 thou/uL (0.8-5.3); ABSOLUTE MONOCYTES 0.4 thou/uL (0.0-1.2); ABSOLUTE NEUTROPHILS 26.4 thou/uL (1.6-8.1); BASOPHILS 0.1 %; EOSINOPHILS 0.2 %; LYMPHOCYTES 3.8 %; MONOCYTES 1.3 %; POLYS 94.6 %
[2019-05-07 10:25] LABS: CALCIUM 9.5 mg/dL (8.5-10.1); CREATININE 2.2 mg/dL (0.6-1.3); POTASSIUM 4.8 mmol/L (3.5-5.1)
--- NOTE | 2019-05-07 18:21 | NUR ---
ASSUMED PT CARE AT 0715. NURSING ASSESSMENT COMPLETED AT START OF SHIFT. PT C/O PAIN TO BACK/RIGHT SIDE RIBCAGE THIS SHIFT. PRN PAIN MEDICATION ADMINISTERED. SEE EMAR FOR DOCUMENTATION. PT SR/SB AT START OF SHIFT. PT RHYTHM CHANGE TO AFIB AT 1040. EKG COMPLETED. PROVIDER NOTIFIED AND NEW ORDERS RECEIVED. DR. SALAS NOTIFIED OF CONSULT. HOURLY ROUNDING COMPLETED. HIGH FALL PRECAUTIONS IN PLACE.
[2019-05-08 02:08] LABS: GLYCOHEMOGLOBIN (HGB A1C) 9.2 % (4.8-5.6)
[2019-05-08 04:10] VITALS: BP 89/59
[2019-05-08 04:30] VITALS: BP 110/56
--- NOTE | 2019-05-08 06:47 | NUR ---
ASSUMED CARE OF PT AFTER REPORT AT 1930. PT A&OX4. FORGETFUL. VSS. PHYSICAL ASSESSMENT COMPLETED AND CHARTED. PT ON O2 AT 4L NC. PT TRACING AFIB AND CONVERTED TO SR. PT WITH EPISODE OF BP 89/59-TITRATED CARDIZEM DRIP BUT HR WENT DOWN TO 40'S AND CONVERTED TO SR-STOPPED CARDIZEM DRIP. PT UP WITH 1 ASSIST TO BSC. PT COMPLAINED OF RIGHT BACK-MEDS GIVEN PER MAR. PT ABLE TO SLEEP WELL ON BED. CALL LIGHT WITHIN REACH.
[2019-05-08 08:00] VITALS: BP 117/49
[2019-05-08 11:07] VITALS: BP 106/47
--- NOTE | 2019-05-08 12:02 | CON ---
[address] [address] CONSULTATION Name: OCTAVIA DEE Room: [address] IN .R.#: [id number] Admission: 05/06/19 Attend Phys: Zack Shelley Discharge: Date of : 40 Report #: [id number] THIS REPORT FOR: //name// CC: Ibrahima Quintero DATE OF SERVICE: 05/07/2019 INDICATION: Atrial fibrillation. HISTORY OF PRESENT ILLNESS: The patient is a moderately-demented pleasant 78-year-old white female, admitted to the hospital 2 days ago with pneumonia and respiratory failure. She has been placed on appropriate pulmonary toilet and antibiotics. During hospitalization, she was noted to have recurrence of atrial fibrillation. She has been on sotalol in the remote past but is no longer on this. Presently, she has been started on a diltiazem drip with bolus. She is not having any significant symptoms related to her atrial fibrillation. She denies any significant chest pain or shortness of breath. PAST MEDICAL HISTORY: 1. Hypertension. 2. Dementia. 3. History of stroke. 4. Chronic urinary frequency. 5. Irritable bowel syndrome. 6. Tonsillectomy. 7. Hysterectomy. 8. Acute renal failure. 9. Alzheimer disease. FAMILY HISTORY: Noncontributory. SOCIAL HISTORY: The patient does not smoke or drink alcohol. ALLERGIES: None documented. CURRENT MEDICATIONS: Flomax, amlodipine 5 mg daily, aspirin 325 mg daily, atenolol 50 mg at bedtime, atorvastatin 20 mg at bedtime, calcium with vitamin D supplement daily, diltiazem drip, ibuprofen p.r.n., hydrocodone and acetaminophen p.r.n., sliding scale insulin, Levaquin, loratadine, losartan, Namenda, metformin, Solu-Medrol, and multivitamin. PHYSICAL EXAMINATION: VITAL SIGNS: Stable. Blood pressure 122/56. [place]ulse [place] [address] CONSULTATION Name: OCTAVIA DEE Room: [address] IN [facility]#: [id number] Admission: 05/06/19 Attend Phys: Zack Shelley Discharge: Date of : 40 Report #: [id number]. GENERAL: This is a pleasant elderly female, in no distress. Mood and affect appropriate. HEENT: Head is normocephalic and atraumatic. She has a lazy eye. Mucous membranes are moist. NECK: Shows no jugular venous distention. CHEST: Reveals clear lung perez. CARDIOVASCULAR: Reveals an irregularly irregular rhythm without gallop or murmur. ABDOMEN: Reveals normal bowel sounds. The abdomen is soft and nontender. EXTREMITIES: Dry skin and no significant edema. IMPRESSION AND RECOMMENDATIONS: 1. Recurrent atrial fibrillation. We will resume sotalol and I would recommend anticoagulation, as her CHADS-VASc score is elevated. Continue telemetry monitoring. If she does convert on sotalol, we would be able to titrate off diltiazem drip. We will hold bedtime atenolol at this time. 2. Hypertension. Blood pressure adequately controlled on current cardiac regimen. 3. Pneumonia and respiratory failure per hospitalist. <ELECTRONICALLY SIGNED> By: Ok Romero MD, FACC 05/08/19 1202 1205 1227Ok Romero MD, FACC /nt
[2019-05-08 14:37] LABS: ABSOLUTE LYMPHOCYTES 0.7 thou/uL (0.8-5.3); ABSOLUTE MONOCYTES 1.2 thou/uL (0.0-1.2); ABSOLUTE NEUTROPHILS 27.7 thou/uL (1.6-8.1); BASOPHILS 0.1 %; EOSINOPHILS 0.1 %; HEMATOCRIT 38.5 % (37.0-47.0); HEMOGLOBIN 12.6 gm/dL (12.0-15.0); LYMPHOCYTES 2.4 %; MCH 29.3 pg (26.0-34.0); MCHC 32.8 g/dL (28.0-37.0); MCV 89.2 fL (80.0-100.0); MONOCYTES 4.1 %; MPV 8.2 fl. (7.2-11.1); NUCLEATED RBCS 0 /100WBC; PLATELET COUNT* 337 thou/uL (150-400); POLYS 93.3 %; RBC 4.32 mil/uL (4.20-5.00); RDW-CV 15.4 % (10.5-14.5); WBC 29.7 thou/uL (4.0-11.0)
[2019-05-08 14:44] LABS: CALCIUM 9.5 mg/dL (8.5-10.1); CREATININE 2.6 mg/dL (0.6-1.3)
[2019-05-08 14:50] LABS: POTASSIUM 4.9 mmol/L (3.5-5.1)
[2019-05-08 16:36] VITALS: BP 140/62
--- NOTE | 2019-05-08 16:39 | EKG ---
[place] [address] ELECTROCARDIOGRAM REPORT Name: OCTAVIA DEE Room: [address] ADM IN M.R.#: [id number] Admission: 05/06/19 Attend Phys: Zack Shelley Discharge: Date of : 40 Report #: [id number] THIS REPORT FOR: //name// [facility] ED Test Date: 2019-05-06 Test Time: 15:19:25 Pat Name: OCTAVIA DEE Department: Room: [facility] Gender: F Boat Carpenter: [facility] : 1940 Requested By: Ned Tomlin Order Number: [id number] MD: Ok Romero Measurements Intervals [place] Rate: 69 P: 42 OR: 150 QRS: 1 QRSD: 92 T: -8 QT: 404 QTc: 433 Interpretive Statements Sinus rhythm Probable anteroseptal infarct, old Borderline T abnormalities, inferior leads Compared to ECG 08/22/2017 09:28:31 Atrial fibrillation no longer present Myocardial infarct finding still present T-wave abnormality still present Electronically Signed On 05-08-2019 16:39:07 REFINERY TECHNICIAN by Ok Romero [email or web address] <ELECTRONICALLY SIGNED> By: Ok Romero MD, FACC 05/08/19 1639 1519 1519 Ok Romero MD, [facility] /EPI
--- NOTE | 2019-05-08 18:52 | NUR ---
ASSUMED PT CARE AT 0815. SINUS BRADYCARDIA ON PLATFORM LOADER. SOA WITH ACTIVITY. O2 SAT MAINTAINED AT OR ABOVE 92% THIS SHIFT. HOURLY ROUNDING COMPLETED.NEGATIVE SEPSIS SCREENING. HIGH FALL PRECAUTIONS IN PLACE. CALL LIGHT WITHIN REACH.
[2019-05-08 20:00] VITALS: BP 118/57
[2019-05-09] VITALS: BP 141/55
[2019-05-09 04:00] VITALS: BP 159/54
--- NOTE | 2019-05-09 04:44 | NUR ---
ASSUMED CARE OF PT AFTER REPORT AT 1930. PT A&OX4. FORGETFUL AT TIMES. VSS. PHYSICAL ASSESSMENT COMPLETED AND CHARTED. PT ON O2 AT 3L NC. PT TRACING SB ON TELE. PT UPWITH 1 ASSIST TO BSC. PT DENIES ANY PAIN OR DISCOMFORT. PT ABLE TO SLEEP WELL ON BED. FALL PRECAUTIONS IN PLACE. CALL LIGHT WITHIN REACH.
[2019-05-09 08:53] VITALS: BP 146/61
--- NOTE | 2019-05-09 09:57 | EKG ---
[place] [address] ELECTROCARDIOGRAM REPORT Name: OCTAVIA DEE Room: [address] ADM IN M.R.#: [id number] Admission: 05/06/19 Attend Phys: Zack Shelley Discharge: Date of : 40 Report #: [id number] THIS REPORT FOR: //name// [facility] Test Date: 2019-05-07 Test Time: 11:07:39 Pat Name: OCTAVIA DEE Department: Room: [address] Gender: F I&C Technician: CHARB[place] : 1940 Requested By: Christophe Quintero Order Number: [id number] Jair MD: Richard Kauffman Measurements Intervals [place] Rate: 128 P: WI: QRS: 17 QRSD: 93 T: -36 QT: 294 QTc: 429 Interpretive Statements Atrial fibrillation Low voltage, precordial leads Anteroseptal infarct, old Borderline repolarization abnormality Baseline wander in lead(s) V4 Compared to ECG 05/06/2019 15:19:25 Low QRS voltage now present Sinus rhythm no longer present Myocardial infarct finding still present Electronically Signed On 05-09-2019 9:57:15 HOME HEALTH CARE PROVIDER by Richard Kauffman [email or web address] <ELECTRONICALLY SIGNED> By: Richard Kauffman MD, [facility] 05/09/19 0957 1107 1107 Richard Kauffman MD, [facility] /EPI
[2019-05-09 12:00] VITALS: BP 127/48
--- NOTE | 2019-05-09 12:29 | EKG ---
[place] [address] ELECTROCARDIOGRAM REPORT Name: OCTAVIA DEE Room: [address] ADM IN M.R.#: [id number] Admission: 05/06/19 Attend Phys: Zack Shelley Discharge: Date of : 40 Report #: [id number] THIS REPORT FOR: //name// [facility] Test Date: 2019-05-09 Test Time: 11:47:53 Pat Name: OCTAVIA DEE Department: Room: [address] Gender: F Train Conductor: : 1940 Requested By: Ok Romero Order Number: [id number] MD: Richard Kauffman Measurements Intervals [place] Rate: 62 P: 38 UT: 148 QRS: 1 QRSD: 94 T: 4 QT: 442 QTc: 449 Interpretive Statements Sinus rhythm Anterior infarct, old Borderline T abnormalities, inferior leads Baseline wander in lead(s) II,III,aVF,V4 Compared to ECG 05/07/2019 11:07:39 Atrial fibrillation no longer present Myocardial infarct finding still present Electronically Signed On 05-09-2019 12:28:30 HEAD CASHIER by Richard Kauffman [email or web address] <ELECTRONICALLY SIGNED> By: Richard Kauffman MD, [facility] 05/09/19 1228 1147 1147 Richard Kauffman MD, [facility] /EPI
--- NOTE | 2019-05-09 14:37 | NUR ---
Pt is A&O. Resides at home with her dtr. Independent, dtr completes IADLs. Pt has a cane and walker that she can use for mobility. No home o2. Hx of , does not recall the name of the agency. Hx of madalyn at [facility]. goal is home at al. Following.
[2019-05-09 14:53] LABS: HEMATOCRIT 37.2 % (37.0-47.0); HEMOGLOBIN 12.1 gm/dL (12.0-15.0); MCH 29.3 pg (26.0-34.0); MCHC 32.6 g/dL (28.0-37.0); MCV 89.7 fL (80.0-100.0); MPV 8.5 fl. (7.2-11.1); NUCLEATED RBCS 0 /100WBC; PLATELET COUNT* 345 thou/uL (150-400); RBC 4.15 mil/uL (4.20-5.00); RDW-CV 15.8 % (10.5-14.5); WBC 25.2 thou/uL (4.0-11.0)
[2019-05-09 14:59] LABS: ALBUMIN 1.5 g/dL (3.4-5.0); CALCIUM 8.8 mg/dL (8.5-10.1); POTASSIUM 5.5 mmol/L (3.5-5.1); TOTAL BILIRUBIN 0.2 mg/dL (<0.1-1.0); TOTAL PROTEIN 6.5 g/dL (6.4-8.2)
[2019-05-09 15:17] LABS: ABSOLUTE LYMPHOCYTES 0.8 thou/uL (0.8-5.3); ABSOLUTE MONOCYTES 0.3 thou/uL (0.0-1.2); ABSOLUTE NEUTROPHILS 24.2 thou/uL (1.6-8.1); PLATELET ESTIMATE ADEQUATE
[2019-05-09 16:00] VITALS: BP 131/49
--- NOTE | 2019-05-09 16:39 | 2DMMODE ---
[place] [address] 2 D/M-MODE ECHOCARDIOGRAM Name: LUIZOCTAVIA HORACIO Room: [address] IN .R.#: [id number] Admission: 05/06/19 Attend Phys: Christophe Quintero Discharge: Date of : 40 Date of Service: 05/09/19 1638 Report #: [id number] THIS REPORT FOR: //name// APPROVED REPORT Study performed: 05/09/2019 13:14:08 EXAM: Comprehensive 2D, Doppler, and color-flow Echocardiogram BSA: 1.89 HR: 54 bpm BP: 159/54 mmHg Other Information Study Quality: Technically Difficult Technically limited study due to inability to position patient. Indications Elevated proBNP and crackles 2D Dimensions IVSd: 14.12 (7-11mm) LVOT Diam: 20.51 (18-24mm) LVDd: 38.99 mm PWd: 9.44 (7-11mm) Ascending Ao: 26.79 (22-36mm) LVDs: 27.75 (25-40mm) Aortic Root: 26.29 mm Volumes Left Atrial Volume (Systole) LA ESV Index: 28.40 mL/m2 Aortic Valve AoV Peak Davian.: 0.93 m/s AO Peak Gr.: 3.48 mmHg LVOT Max P.70 mmHg AO Mean Gr.: 1.84 mmHg LVOT Mean P.29 mmHg LVOT Max V: 0.82 m/s AO V2 VTI: 18.78 cm LVOT Mean V: 0.52 m/s FERNANDA (VTI): 2.90 cm2 LVOT V1 VTI: 16.47 cm Mitral Valve E/A Ratio: 0.71 MV Decel. Time: 428.89 ms MV E Max Davian.: 0.48 m/s MV PHT: 124.38 [place] [address] 2 D/M-MODE ECHOCARDIOGRAM Name: OCTAVIA DEE HORACIO Room: [address] IN .R.#: [id number] Admission: 05/06/19 Attend Phys: Christophe Quintero Discharge: Date of : 40 Date of Service: 05/09/19 1638 Report #: [id number] MVA (PHT): 1.77 cm2 TDI E/Lateral E': 8.00 E/Medial E': 5.33 Medial E' Davian.: 0.09 m/s Lateral E' Davian.: 0.06 m/s Pulmonary Valve PV Peak Davian.: 0.96 m/s PV Peak Gr.: 3.67 mmHg Tricuspid Valve RAP Estimate: 5.00 mmHg TR Peak Gr.: 37.23 mmHg RVSP: 42.23 mmHg PA Pressure: 42.23 mmHg Left Ventricle The left ventricle is normal size. There is normal LV segmental wall motion. Mild concentric left ventricular hypertrophy. Left ventricular systolic function is normal. LVEF is 60-65%. Grade I - abnormal relaxation pattern. Right Ventricle The right ventricle is normal size. The right ventricular systolic function is normal. Atria The left atrium size is normal. The right atrium size is normal. Aortic Valve The Aortic valve is sclerotic. No aortic regurgitation is present. There is no aortic valvular stenosis. Mitral Valve The mitral valve is normal in structure. There is no mitral valve regurgitation noted. No evidence of mitral valve stenosis. Tricuspid Valve The tricuspid valve is normal in structure. Mild tricuspid regurgitation. The RVSP is 40-45 mmHg. Pulmonic Valve The pulmonary valve is normal in structure. There is no pulmonic valvular regurgitation[place] [address] 2 D/M-MODE ECHOCARDIOGRAM Name: OCTAVIA DEE Room: [address] IN [facility]#: [id number] Admission: 05/06/19 Attend Phys: Christophe Quintero Discharge: Date of : 40 Date of Service: 05/09/19 1638 Report #: [id number] The aortic root is normal in size. IVC is normal in size and collapses >50% with inspiration. Pericardium There is no pericardial effusion. <Conclusion> The left ventricle is normal size. Mild concentric left ventricular hypertrophy. Left ventricular systolic function is normal. LVEF is 60-65%. Grade I - abnormal relaxation pattern. Mild tricuspid regurgitation. The RVSP is 40-45 mmHg. IVC is normal in size and collapses >50% with inspiration. <ELECTRONICALLY SIGNED> By: Ok Romero MD, FACC 05/09/19 1638 1638 1638 Ok Romero MD, FACC /INF
[2019-05-09 16:49] LABS: URINE BILIRUBIN NEGATIVE (Negative); URINE BLOOD 3+ (Negative); URINE COLOR YELLOW; URINE GLUCOSE-RANDOM NEGATIVE (Negative); URINE KETONES NEGATIVE (Negative); URINE LEUKOCYTES NEGATIVE (Negative); URINE NITRITE NEGATIVE (Negative); URINE PROTEIN NEGATIVE (Negative); URINE UROBILINOGEN 0.2 E.U./dl (0.2-1.0)
[2019-05-09 16:50] LABS: URINE CLARITY HAZY
[2019-05-09 17:00] LABS: SQUAMOUS 0-3 Few /LPF (0-3)
[2019-05-09 17:01] LABS: AMORPHOUS URATES Few /LPF (None Seen); CASTS None Seen /LPF (None Seen); URINE RBC 0-2 Rare /HPF (0-2); URINE WBC 0-5 Rare /HPF (0-5)
[2019-05-09 19:50] VITALS: BP 111/54
[2019-05-09 20:46] LABS: CALCIUM 9.6 mg/dL (8.5-10.1); CREATININE 2.6 mg/dL (0.6-1.3); MAGNESIUM 2.3 mg/dL (1.8-2.4); POTASSIUM 4.7 mmol/L (3.5-5.1)
[2019-05-10] VITALS (7 sets, daily range): BP systolic 116–173; BP diastolic 39–62
[2019-05-10 05:33] LABS: HEMATOCRIT 35.9 % (37.0-47.0); HEMOGLOBIN 11.9 gm/dL (12.0-15.0); MCH 29.2 pg (26.0-34.0); MCHC 33.2 g/dL (28.0-37.0); MPV 8.3 fl. (7.2-11.1); RBC 4.08 mil/uL (4.20-5.00); RDW-CV 15.6 % (10.5-14.5); WBC 26.9 thou/uL (4.0-11.0)
[2019-05-10 05:58] LABS: ALBUMIN 1.4 g/dL (3.4-5.0); CREATININE 2.5 mg/dL (0.6-1.3); MAGNESIUM 2.4 mg/dL (1.8-2.4); POTASSIUM 5.2 mmol/L (3.5-5.1); TOTAL BILIRUBIN 0.2 mg/dL (<0.1-1.0); TOTAL PROTEIN 6.2 g/dL (6.4-8.2)
--- NOTE | 2019-05-10 06:34 | NUR ---
ASSUMED CARE OF PATIENT AT APPROX 1930. ALERT AND ORIENTED X2-3. VSS ON 3 LITERS 02. ACCUCHECKS ORDERED EVERY 30 MINUTES, THEN CHANGED TO EVERY 2 HOURS. INSULIN DRIP DC'D AND MODERATE SLIDING SCALE RESUMED. NO COMPLAINTS THROUGHOUT THE SHIFT. LOVE IN PLACE AND DRAINING DEPENDENTLY. FALL PRECAUTIONS IN PLACE. CALL LIGHT WITHIN REACH. HOURLY ROUNDS COMPLETED. WILL CONTINUE WITH PLAN OF CARE.
--- NOTE | 2019-05-10 12:26 | NUR ---
ASSUMED CARE OF PT AT 0730. PT RESTING IN BED. PT A&0X3- FORGETFUL AND CONFUSED AT TIMES. DEMENTIA NOTED. PT DENIES ANY PAIN OR SHORTNESS OF BREATH AT THIS TIME. TRACING SB ON THE CARD STRIPPER. RATE IN THE UPPER 50'S. PT ON 2L NC SAT 94%. PULMONARY HERE TO SEE PT THIS AM-ORDERS RECEIVED FOR US GUIDED THORACENTESIS. VERBAL CONSENT RECEIVED FROM DPOA-DAUGHTER JELLY HUI BY MYSELF AND UCHE BHAKTA. PLAN IS FOR AROUND 1400 PER US. LOVE TO DEPENDENT DRAINAGE. IVF. ID CONSULT IN PLACE. NEW ANTIBIOTICS STARTED-REFER TO EMAR. BLOOD SUGAR CHECKED FREQUENTLY- RANGING 100-200- INSULING HELD AT THIS TIME DUE TO NPO STATUS. STRICT I/O IN PLACE. PT GOAL FOR TODAY IS MAINTAIN BLOOD GLUCOSE ABOVE 80 AND BELOW 280, THORACENTESIS, TITRATE OXYGEN, INCREASE ACTIVITY AND MAINTAIN HEART RATE ABOVE 50. AM ASSESSMENT CHARTED. MEDICATIONS PER JUN. PT REPOSITIONED EVERY 2 HOURS FOR COMFORT. HOURLY ROUNDING OBSERVED. BED IN LOW POSITION. BED ALARM IN PLACE. FALL PRECAUTIONS IN PLACE. CALL LIGHT WITHIN REACH. WILL CONTINUE PLAN OF CARE.
[2019-05-10 16:42] LABS: BF RBC <1000 /mm3; TOTAL CELL COUNT >66000 /mm3
[2019-05-10 16:46] LABS: CLARITY CLOUDY; TOTAL VOLUME 750 ml
--- NOTE | 2019-05-10 17:07 | NUR ---
NO ACUTE CHANGES THROUGHOUT SHIFT. REFER TO CHARTING. URINALYSIS OBTAINED AND SENT TO LAB. PT HAD RIGHT THORACENTESIS- 1,000 REMOVED PER REPORT. PT HAD CXR POST THORACENTESIS-REFER TO RESULTS. BLOOD GLUCOSE 327 AT DINNER TIME- 16 UNITS GIVEN WITH DINNER. MRSA SWAB OBTAINED AND SENT TO LAB. AWAITING RESULTS. PT HEART RATE REMAINS IN THE 50'S- SINUS [place]. ON 2L NC SAT UPPER 90'S. PT DENIES ANY PAIN OR SHORTNESS OF BREATH THIS AFTERNOON. DAUGHTER AT BEDSIDE THIS AFTERNOON AND UPDATED ON CURRENT PLAN OF CARE. PT UP WITH 1-2 ASSIST, WEAKNESS NOTED. LOVE TO DEPENDENT DRAINAGE. MEDICATIONS PER JUN. PT REPOSITIONED EVERY 2 HOURS FOR COMFORT. HOURLY ROUNDING OBSERVED. BED IN LOW POSITION. BED ALARM IN PLACE. FALL PRECAUTIONS IN PLACE. CALL LIGHT WITHIN REACH. WILL CONTINUE PLAN OF CARE.
[2019-05-10 17:39] LABS: BF LYMPHOCYTES 3 %; BF POLYS 97 %; SOURCE PLEURAL FLUID
--- NOTE | 2019-05-10 18:58 | CON ---
[address] [address] CONSULTATION Name: OCTAVIA DEE Room: [address] IN M.R.#: [id number] Admission: 05/06/19 Attend Phys: Zack hSelley Discharge: Date of : 40 Report #: [id number] THIS REPORT FOR: //name// CC: Ibrahima Quintero DATE OF SERVICE: 05/10/2019 I was asked to see this 78-year-old lady for acute respiratory failure, abnormal CT of the chest. HISTORY OF PRESENT ILLNESS: She has dementia. She answers most of my questions. She is a lifelong nonsmoker. Apparently, she started to have shortness of breath and right-sided chest pain about a week ago. She was brought to the Emergency Room, was admitted for further evaluation. She denies cough, but while I was interviewing her, she started coughing. She has audible wheezing. She does not know if she had fever or chills. She denies nausea, vomiting, or diarrhea. She has paroxysmal atrial fibrillation and is on Xarelto, last dose was 2 days ago at 9:00 a.m. PAST MEDICAL HISTORY: Hypertension, nonmalignant brain tumor, constipation, tonsillectomy, hysterectomy, dementia, history of CVA, paroxysmal atrial fibrillation. ALLERGIES: No known drug allergies. MEDICATIONS: Currently, she is on Xarelto, which last dose was 2 days ago, DuoNeb, Solu-Medrol 40 mg b.i.d., insulin, Norvasc, aspirin, Lipitor, calcium, Levaquin, sotalol, aspirin. SOCIAL HISTORY: Lifelong nonsmoker. FAMILY HISTORY: Hypertension. REVIEW OF SYSTEMS: As mentioned as above, other systems otherwise negative. PHYSICAL EXAMINATION: GENERAL: This is a well-developed lady. VITAL SIGNS: Her O2 saturation on 3 liters of oxygen is 93%, respiratory rate 18, heart rate 52, blood pressure 172/63, temperature 36.4. HEENT: Normocephalic, atraumatic. Pupils equal, round, reactive to light. Throat is clear. She has poor dentition. Nose is clear. NECK: There is no JVD, lymphadenopathy [place] [address] CONSULTATION Name: OCTAVIA DEE Room: [address]#: [id number] Admission: 05/06/19 Attend Phys: Zack Shelley Discharge: Date of : 40 Report #: [id number] CARDIOVASCULAR: Regular rate and rhythm. PMI is nondisplaced. CHEST: Inspection is normal. LUNGS: There are a few end-expiratory wheezing, bibasilar crackles, dullness at the right base. ABDOMEN: Soft. Bowel sounds are good. There is no mass. EXTREMITIES: There is trace edema. LYMPHATICS: There is no lymphadenopathy. NEUROLOGIC: Alert. SKIN: Chronic changes. LABORATORY DATA: I reviewed the following lab data: Her white count today is 26.9, on 05/06 it was 28.2, hemoglobin 11.9, platelets 318. Sodium 134, potassium 4.7, chloride 101, CO2 of 25, glucose 94, BUN 99, creatinine 2.6. Lactic acid 1.8. Troponin less than 0.06. BNP 3006. INR 1.1. Influenza A and B negative. CT of the chest does show a loculated right pleural effusion, right infiltrate/atelectasis. Ultrasound of kidney did not show hydronephrosis. IMPRESSION: 1. Acute hypoxemic respiratory failure due to pneumonia. She does have loculated right pleural effusion, could be parapneumonic effusion versus empyema. 2. Abnormal CT of the chest. 3. Paroxysmal atrial fibrillation. 4. Diabetes mellitus. 5. Acute kidney injury. 6. Dementia. 7. Hypertension. 8. Acute bronchospasm. PLAN AND RECOMMENDATIONS: 1. Titrate FiO2 to keep O2 saturation 92%. 2. Continue bronchodilator. 3. Continue Solu-Medrol. Monitor blood sugar. 4. Add inhaled corticosteroid. 5. I do recommend ultrasound-guided thoracentesis in IR. We will send pleural fluid for pH, cell count with differential, cytology, Gram stain and culture, AFB smear and culture, fungal smear and culture, LDH, total protein, glucose. We will do LDH, total protein, glucose and serum at the same time. Her last dose of Xarelto was about 48 hours ago. 6. Restart Xarelto after thoracentesis is done when okay with interventional radiologist. 7. Monitor WBC. 8. Continue sotalol per Cardiology. 9. The findings and recommendations were discussed with the patient and RN. [address] [address] CONSULTATION Name: OCTAVIA DEE Room: [address] IN M.R.#: [id number] Admission: 05/06/19 Attend Phys: Zack Shelley Discharge: Date of : 40 Report #: [id number] She understood and agreed to proceed with the plan. Since she has dementia, IR would need to get the consent from her durable power of patent attorney. I will defer that to them. Thank you very much for allowing me to participate in care of this very nice lady. I will discuss with Dr. Magaña, the attending physician. <ELECTRONICALLY SIGNED> By: Pamela Chen MD 05/10/19 1858 0602 [id number] Chen MD /matty
[2019-05-11 04:00] VITALS: BP 125/44
--- NOTE | 2019-05-11 04:29 | NUR ---
ASSUMED CARE OF PT AFTER REPORT AT 1930. PT A&OX3. NOT ORIENTED TO TIME. FORGETFUL. VSS. PHYSICAL ASSESSMENT COMPLETED AND CHARTED. PT ON O2 AT 1.5L NC. PT TRACING SR/SB ON TELE. PT WITH LOVE TO DEPENDENT DRAINS. PT TURNED TO SIDES. PT COMPLAINED OF LEFT RIB CAGE-MED GIVEN PER MAR. PT ABLE TO SLEEP WELL ON BED. CALL LIGHT WITHIN REACH.
[2019-05-11 06:50] LABS: CALCIUM 8.3 mg/dL (8.5-10.1); CREATININE 2.1 mg/dL (0.6-1.3); POTASSIUM 5.1 mmol/L (3.5-5.1)
[2019-05-11 06:59] LABS: HEMATOCRIT 32.5 % (37.0-47.0); HEMOGLOBIN 10.8 gm/dL (12.0-15.0); MCH 29.1 pg (26.0-34.0); MCHC 33.1 g/dL (28.0-37.0); MPV 8.3 fl. (7.2-11.1); RBC 3.7 mil/uL (4.20-5.00); RDW-CV 15.3 % (10.5-14.5)
[2019-05-11 07:37] LABS: ALBUMIN 1.4 g/dL (3.4-5.0); CALCIUM 8.2 mg/dL (8.5-10.1); CREATININE 2.1 mg/dL (0.6-1.3); PHOSPHORUS* 4.3 mg/dL (2.5-4.9); POTASSIUM 5.1 mmol/L (3.5-5.1)
[2019-05-11 08:00] VITALS: BP 147/50
[2019-05-11 12:00] VITALS: BP 143/55
--- NOTE | 2019-05-11 12:22 | CON ---
[address] [address] CONSULTATION Name: OCTAVIA DEE Room: [address] IN M.R.#: [id number] Admission: 05/06/19 Attend Phys: Zack Shelley Discharge: Date of : 40 Report #: [id number] THIS REPORT FOR: //name// CC: Ibrahima Quintero DATE OF SERVICE: 05/09/2019 ATTENDING PHYSICIAN: Dr. Magaña. REASON FOR EVALUATION: Complicated lower respiratory tract infection with large right pleural effusion. HISTORY OF PRESENT ILLNESS: Chart reviewed, patient examined. This is a 78-year-old woman with fairly extensive medical history as some dementia, previous stroke, who presented through the Emergency Room with complaints of several-day history of progressive dyspnea with cough, right-sided chest pain, also noted sore throat, primarily obtained through the record. She was evaluated. Imaging showed large right pleural effusion. She is scheduled to undergo thoracentesis later today. She was also found to be in renal failure and hypoalbuminemia, currently level of 1.4. Lactic acid was elevated and peaked at 2.7 as well. Did have a markedly elevated white count, currently at 26.9. Blood cultures collected on which were sterile. Due to concern about infectious etiology, she was started empirically on antimicrobial therapy with levofloxacin. At this point, she denies significant amount of pain. Again, the history is somewhat not detailed. ALLERGIES: None known. CURRENT MEDICATIONS: Include insulin lispro, amlodipine, aspirin, sotalol, levofloxacin, methylprednisolone, multivitamin, atorvastatin, memantine, loratadine, hydrocodone as needed, ipratropium and albuterol inhaler. PAST MEDICAL HISTORY: As described above, history of hypertension, previous history of benign brain tumor, stroke, and dementia. Reportedly, she has a history of diabetes mellitus, atrial fibrillation, irritable bowel syndrome, status post hysterectomy and tonsillectomy. SOCIAL HISTORY: Nonsmoker, no ethanol, no illicit drug use. FAMILY HISTORY: Noncontributory. REVIEW OF SYSTEMS: Not reliably obtained. PHYSICAL EXAMINATION: [place] [address] CONSULTATION Name: OCTAVIA DEE Room: [address]#: [id number] Admission: 05/06/19 Attend Phys: Zack Shelley Discharge: Date of : 40 Report #: [id number] GENERAL: She appears chronically ill, undernourished, is pleasant, does have an abbreviated responses to questions, usually one or 2 words. She is in [id number] distress. VITAL SIGNS: Temperature 97.4, pulse 58, respirations 20, blood pressure 139/48. SKIN: Warm. She is somewhat pale. HEENT: Normocephalic. Extraocular muscles intact. NECK: Supple. LUNGS: Diminished on the right, bilateral crackles. HEART: Irregular. I do not appreciate a murmur. ABDOMEN: Soft, nontender. There are no peritoneal signs. GENITOURINARY AND RECTAL: Deferred. LABORATORY AND DIAGNOSTIC STUDIES: Prealbumin of 12.3. Electrolytes: Sodium 134, potassium 5.2, chloride 101, bicarbonate is 26, anion gap of 7, BUN and creatinine 104 and 2.5, glucose of 211. AST of 41, ALT of 88, both slightly elevated. Albumin 1.4, total protein of 6.2. Estimated GFR of 19. CBC: White count 26.9, H and H 11.9 and 35.9, platelets of 318. Urinalysis showed 0-5 white cells. Echo showed an EF of 60-65%, no significant abnormalities involving the veins. Influenza antigen was negative. CT of the chest, some loculated moderate right pleural effusion with right lower lobe and middle lobe consolidation. ASSESSMENT AND PLAN: Complicated pneumonitis with parapneumonic effusion on the right side. Agree with procedural approach with thoracentesis, certainly will be helpful to guide antibiotic therapy, certainly can exclude occult problem with suspect at least a component of infection at this point. It is reasonable to adjust antimicrobial therapy to worry about Levaquin with adverse drug effects also perhaps drug-drug interactions with her other medicine. At this point, she is not overtly toxic. Support her as needed with oxygen therapy. Monitor expectantly for nosocomial related infectious and noninfectious complications. <ELECTRONICALLY SIGNED> By: José Miguel Urban MD 05/11/19 1222 1124 [id number] Urban MD /nt
--- NOTE | 2019-05-11 14:09 | NUR ---
ASSUMED CARE OF PATIENT THIS AM AT 0730. PATIENT IS SLEEPING OFF AND ON BUT EASLY AROUSED. TELE SHOWS SINUS DAKOTA. PATIENT DENIES PAIN AND DISCOMFORT. PLANNED CHEST TUBE PLACEMENT DISCONTINUED PER ORDER. PATIENT PLACED BACK ON HER DIET. BLOOD SUGARS MONITORED Q 2 HR. O2 SATS 97 TO 98% ON 1.5 LITERS. NO BM FOR 5 DAYS. PATIENT DENIES ABDOMINAL DISCOMFORT. PATIENT ASSISTED TO TURN Q 2 HR. NO FALLS OR INJURY.
[2019-05-11 16:00] VITALS: BP 132/49
[2019-05-11 19:08] LABS: BODY FLUID AMYLASE 13 U/L (()); BODY FLUID LDH 7815 IU/L (()); BODY FLUID PROTEIN 4.6 g/dL (())
[2019-05-11 20:00] VITALS: BP 136/50
[2019-05-11 21:34] LABS: SOURCE PLEURAL
[2019-05-12] VITALS: BP 143/47
[2019-05-12 04:00] VITALS: BP 144/51
--- NOTE | 2019-05-12 06:09 | NUR ---
ASSUMED CARE OF PT AFTE REPORT AT 1930. PT A&OX4. VSS. PHYSICAL ASSESSMENT COMPLETED AND CHARTED. PT ON O2 AT 1L NC. PT TRACING SR/SB ON TELE. PT WITH LOVE TO DEPENDENT DRAIN. PT COMPLAINED OF RIGHT RIBCAGE PAIN-PAIN MEDICATION GIVEN WITH NO RELIEF-DR JHAVERI MADE AWARE WITH NEW ORDER. PT TURNED TO SIDES. PT ABLE TO SLEEP WELL ON BED. CALL LIGHT WITHIN REACH.
[2019-05-12 08:00] VITALS: BP 156/58
[2019-05-12 12:00] VITALS: BP 124/79; BP 141/53
[2019-05-12 14:04] LABS: HEMATOCRIT 33.7 % (37.0-47.0); MCH 29.1 pg (26.0-34.0); MCHC 32.7 g/dL (28.0-37.0); MCV 88.9 fL (80.0-100.0); MPV 8.5 fl. (7.2-11.1); NUCLEATED RBCS 0 /100WBC; PLATELET COUNT* 300 thou/uL (150-400); RBC 3.79 mil/uL (4.20-5.00); RDW-CV 15.6 % (10.5-14.5)
[2019-05-12 14:09] LABS: CALCIUM 8.4 mg/dL (8.5-10.1); CREATININE 1.9 mg/dL (0.6-1.3); POTASSIUM 5.1 mmol/L (3.5-5.1)
[2019-05-12 14:29] LABS: ABSOLUTE LYMPHOCYTES 1.4 thou/uL (0.8-5.3); ABSOLUTE MONOCYTES 1.3 thou/uL (0.0-1.2); ABSOLUTE NEUTROPHILS 15.3 thou/uL (1.6-8.1); ATYPICAL LYMPHS 1 %; PLATELET ESTIMATE ADEQUATE
[2019-05-12 16:00] VITALS: BP 141/50
[2019-05-12 20:20] VITALS: BP 151/59
[2019-05-13] VITALS: BP 143/51
[2019-05-13 05:25] VITALS: BP 125/68
--- NOTE | 2019-05-13 07:54 | NUR ---
PT CARE ASSUMED AT 1930. SAT MAINTAINED IN O2. ALERT AND ORIENTED X4 BUT FORGETFUL. CALL LIGHT WITHIN REACH AND BED IN LOW POSITION. LOVE IN PLACE AND DRAINING. DENIES PAIN AND SOB. HOURLY ROUNDING DONE FOR PT SAFETY.
[2019-05-13 08:00] VITALS: BP 155/59
--- NOTE | 2019-05-13 13:08 | PATH ---
[address] [address] PATHOLOGY RPT PROCEDURE Name: OCTAVIA DEE Room: [address] IN [facility]#: [id number] Admission: 05/06/19 Date of : 40 Discharge: Report #: [id number] Path Case #: [id number] Note [facility] Accession Number: [id number] TESTS RESULT FLAG UNITS REF RANGE LAB Clinician Provided Cytology Information No. of containers..01 Other (Miscellaneous) Source: RT PLEURAL FLUID DIAGNOSIS: RT PLEURAL FLUID NEGATIVE FOR MALIGNANT CELLS. HEAVY, OBSCURING ACUTE INFLAMMATION. Signed out by: 02 Artur Kumari MD, Pathologist NPI- [id number] Performed by: Tammi Singh, Top Lift Cutter ([facility]) Gross description: 01 45 ML, YELLOW, CLOUDY /LCS 05/11/2019 1250 Local FLAG LEGEND: L-Low Normal,H-High Normal,LL-Alert Low,HH-Alert High <-Panic Low,>-Panic High,A-Abnormal,AA-Critical Abnormal Performed at: [address] [place] [address] Prem Stratton MD, [address] [address] Artur Kumari MD, Specimen Comment: A courtesy copy of this report has been sent to [phone], [phone] Specimen Comment: [id number] Specimen Comment: [id number] Specimen Comment: Report sent to / DR TATE Specimen Comment: A duplicate report has been generated due to demographic updates. Performed at: [address], [place], [place] [id number] MD Prem Stratton MD Phone: [phone]
--- NOTE | 2019-05-13 13:48 | NUR ---
Spoke with Pt's dtr via phone, dtr does not want pt to go to a skilled facility, prefers that she dc home with [facility]. Per dtr, when Pt goes to a skilled facility, it takes them a long time to get back into her routine when she returns home. BETTINA educated on Pt's current physical needs, dtr stated "between my and I, with , we can do it." BETTINA updated nurse and Dr. Lema dc in a few days. [facility] p:[phone] f:[phone]
[2019-05-13 16:00] VITALS: BP 177/59
--- NOTE | 2019-05-13 19:00 | NUR ---
ASSUMED PT CARE AT 0730. ASSESSMENT COMPLETED CHARTED. ABLE TO MAKE SOME NEEDS KNOWN. RESTING IN BED MOST OF THE DAY, UP TO RECLINER WITH HELP OF PT. NO C/O PAIN OR DISCOMFORT. FAMILY AT BEDSIDE NEAR END OF THE DAY. Q2 TURNS COMPLETED CHARTED. IV ABT PER EMAR. ST RECOMMENDED SAME DIET PT ON. WILL CONTINUE TO MONITOR.
[2019-05-13 19:04] LABS: SOURCE THORACENTESIS
[2019-05-13 20:42] VITALS: BP 185/53
[2019-05-14] VITALS: BP 123/54
[2019-05-14 04:00] VITALS: BP 170/62
--- NOTE | 2019-05-14 04:31 | NUR ---
ASSUMED CARE OF PATIENT AT APPROX 1930. ALERT AND ORIENTED X3-4. ASSESSMENT COMPLETED AND CHARTED. VSS ON 2 LITERS 02. NO COMPLAINTS THROUGHOUT THE NIGHT. LOVE IN PLACE AND DRAINING DEPENDENTLY. PATIENT TURNED ORDERED FOR COMFORT. FALL PRECAUTIONS IN PLACE. CALL LIGHT WITHIN REACH. HOURLY ROUNDS COMPLETED. WILL CONTINUE WITH PLAN OF CARE.
[2019-05-14 08:00] VITALS: BP 183/72
[2019-05-14 11:22] LABS: ABSOLUTE EOSINOPHILS 0.1 thou/uL (0.0-0.7); ABSOLUTE LYMPHOCYTES 1.9 thou/uL (0.8-5.3); ABSOLUTE MONOCYTES 1.3 thou/uL (0.0-1.2); BASOPHILS 0.1 %; EOSINOPHILS 0.4 %; HEMATOCRIT 41.3 % (37.0-47.0); LYMPHOCYTES 7.4 %; MCH 28.8 pg (26.0-34.0); MCHC 31.6 g/dL (28.0-37.0); MCV 91.2 fL (80.0-100.0); MONOCYTES 5.3 %; MPV 8.1 fl. (7.2-11.1); NUCLEATED RBCS 0 /100WBC; PLATELET COUNT* 301 thou/uL (150-400); POLYS 86.8 %; RBC 4.52 mil/uL (4.20-5.00); RDW-CV 16.2 % (10.5-14.5); WBC 25.3 thou/uL (4.0-11.0)
[2019-05-14 11:23] LABS: CALCIUM 8.6 mg/dL (8.5-10.1); CREATININE 1.2 mg/dL (0.6-1.3)
[2019-05-14 12:00] VITALS: BP 155/71
[2019-05-14 16:00] VITALS: BP 151/69
[2019-05-15] VITALS: BP 168/61
[2019-05-15 04:00] VITALS: BP 162/58
--- NOTE | 2019-05-15 05:00 | NUR ---
ASSUMED CARE OF PATIENT AT APPROX 1930. ALERT AND ORIENTED X4. ASSESSMENT COMPLETED AND CHARTED. VSS ON ROOM AIR. NO COMPLAINTS THROUGHOUT THE NIGHT. PATIENT OBSERVED RESTING IN BED ON HOURLY ROUNDS. ACCUCHECKS AND INSULIN GIVEN ORDERED. FALL PRECAURTIONS IN PLACE. CALL LIGHT WITHIN REACH. HOURLY ROUNDS COMPLETED. WILL CONTINUE WITH PLAN OF CARE.
[2019-05-15 08:00] VITALS: BP 138/83
[2019-05-15 12:00] VITALS: BP 110/80
[2019-05-15 14:11] LABS: BODY FLUID PH 5.7 (Not Estab.)
[2019-05-15 16:00] VITALS: BP 145/79
--- NOTE | 2019-05-15 18:59 | NUR ---
ASSUMED PT CARE AT 0730. ASSESSMENT COMPLETED CHARTED. ABLE TO MAKE NEEDS KNOWN. UP WITH ASSIST, UP TO CHAIR WITH MEALS. NO C/O PAIN OR DISCOMFORT. RESTING IN BED AT THIS TIME WATCHING THE GAME. VSS. TRYING TO ENCOURAGE PT TO DO ADLS BY HERSELF. WILL CONTINUE TO MONITOR.
[2019-05-15 19:50] VITALS: BP 155/80
[2019-05-16] VITALS (9 sets, daily range): BP systolic 112–140; BP diastolic 55–71
--- NOTE | 2019-05-16 05:04 | NUR ---
ASSUMED CARE OF PATIENT AT APPROX 1930. ALERT AND ORIENTED X4. ASSESSMENT COMPLETED AND CHARTED. VSS ON ROOM AIR. PATIENT NOTED TO HAVE AFIB ON THE MONITOR. NO COMPLAINTS OF PAIN THROUGHOUT THE NIGHT. PATIENT NEEDS ENCOURAGMENT TO REPOSITION SELF ANF REMOVE/ADD BLANKETS WHEN TOO HOT OR COLD. PATIENT ALSO ENCOURAGED TO REACH OVER AND TAKE DRINKS FROM HER PATIENT CUP THAT IS PLACED IN REACH ON THE BEDSIDE TABLE, WHEN SHE IS THIRSTY. PATIENT IS ABLE TO DO SELF CARE AND NEEDS ENCOURAGEMENT TO DO SO. FALLPRECAUTIONS IN PLACE. CALL LIGHT WITHIN REACH. HOURLY ROUNDS COMPLETED. WILL CONTINUE WITH PLAN OF CARE.
[2019-05-16 11:00] LABS: HEMATOCRIT 44.9 % (37.0-47.0); HEMOGLOBIN 14.5 gm/dL (12.0-15.0); MCH 28.9 pg (26.0-34.0); MCHC 32.3 g/dL (28.0-37.0); MCV 89.6 fL (80.0-100.0); MPV 8.3 fl. (7.2-11.1); NUCLEATED RBCS 0 /100WBC; RBC 5.01 mil/uL (4.20-5.00); RDW-CV 15.9 % (10.5-14.5); WBC 34.3 thou/uL (4.0-11.0)
[2019-05-16 11:01] LABS: PLATELET COUNT* 437 thou/uL (150-400)
[2019-05-16 11:27] LABS: ABSOLUTE EOSINOPHILS 0.3 thou/uL (0.0-0.7); ABSOLUTE LYMPHOCYTES 3.8 thou/uL (0.8-5.3); ABSOLUTE MONOCYTES 2.1 thou/uL (0.0-1.2); ABSOLUTE NEUTROPHILS 28.1 thou/uL (1.6-8.1); ATYPICAL LYMPHS 3 %; PLATELET ESTIMATE ADEQUATE
--- NOTE | 2019-05-16 12:42 | NUR ---
Pt discharging to home today, faxed HH orders to [facility] per dtr's request.
[2019-05-16] MEDS ORDERED: AZITHROMYCIN500 MG PO (15:22)
[2019-05-16] MEDS ORDERED: XARELTO20 MG PO (15:30)
[2019-05-16] MEDS ORDERED: CEFPODOXIME PR200 M1 PO (15:34)
[2019-05-16] MEDS ORDERED: GLIPIZIDE 10 MG10 MG PO (15:35)
[2019-05-16] MEDS ORDERED: PREDNISONE 10 M10 M1 PO (15:37)
[2019-05-16] MEDS ORDERED: BETAPACE80 MG PO (15:42)
--- NOTE | 2019-05-16 18:54 | NUR ---
PT VSS, A&OX4, AFIB TO SR ON TELE, ROOM AIR, UP WITH ONE AND WALKER TO BEDSIDE COMMODE. LOVE CATHETER FOR RETENTION- WILL MAINTAIN AT DISCHARGE PER DR. AUGUSTIN. PATIENT AND DAUGHTER DECIDED AFTER REC DISCHARGE ORDERS, PATIENT SHOULD GO TO SNF. BUSINESS MANAGEMENT SPECIALIST DOCTOR INFORMED. POSSESSIONS AND CALL LIGHT WITHIN REACH. HOURLY ROUNDING PERFORMED
[2019-05-17 04:00] VITALS: BP 160/73
--- NOTE | 2019-05-17 05:29 | NUR ---
NO C/O PAIN OR DISCOMFORT NOTED BY PT. DISCHARGE PENDING PLACEMENT TODAY. CURRENTLY ASLLEP IN BED WITH BED ALARM ON AND CALL LIGHT WITHIN REACH.
[2019-05-17 07:28] LABS: ABSOLUTE BASOPHILS 0.1 thou/uL (0.0-0.2); ABSOLUTE EOSINOPHILS 0.2 thou/uL (0.0-0.7); ABSOLUTE LYMPHOCYTES 2.5 thou/uL (0.8-5.3); ABSOLUTE MONOCYTES 1.8 thou/uL (0.0-1.2); ABSOLUTE NEUTROPHILS 25.7 thou/uL (1.6-8.1); BASOPHILS 0.2 %; EOSINOPHILS 0.6 %; HEMATOCRIT 38.6 % (37.0-47.0); HEMOGLOBIN 12.6 gm/dL (12.0-15.0); LYMPHOCYTES 8.4 %; MCH 28.5 pg (26.0-34.0); MCHC 32.5 g/dL (28.0-37.0); MCV 87.7 fL (80.0-100.0); MONOCYTES 5.9 %; NUCLEATED RBCS 0 /100WBC; PLATELET COUNT* 388 thou/uL (150-400); POLYS 84.9 %; RBC 4.41 mil/uL (4.20-5.00); RDW-CV 15.9 % (10.5-14.5); WBC 30.2 thou/uL (4.0-11.0)
[2019-05-17 07:30] VITALS: BP 124/42
--- NOTE | 2019-05-17 08:19 | NUR ---
Cm spoke with dtr, faxing referrals to [facility] per dtr's request, asked that if SNF can accept, to initiate insurance auth, Pt is medically stable to dc.
[2019-05-17 12:00] VITALS: BP 111/59
[2019-05-17 16:00] VITALS: BP 94/55
[2019-05-17 20:00] VITALS: BP 108/55
[2019-05-18] VITALS: BP 103/52
[2019-05-18 04:00] VITALS: BP 126/60
--- NOTE | 2019-05-18 05:25 | NUR ---
PT RESTARTED ON IV ABX, STILL PENDING PLACEMENT FOR DC. MAINTAINING O2 SATS ON RA. NO CONCERNS STATED BY PT, NO C/O PAIN OR DISCOMFORT. PT DOES NEED ENCORAGEMENT TO COMPLETE ADLS THAT SHE IS ABLE TO DO AND TO HELP WITH ONES SHE NEEDS ASSISTANCE. PT IS CURRENTLY ASLEEP IN BED WITH BED ALARM ON AND CALL LIGHT WITHIN REACH.
[2019-05-18 07:30] VITALS: BP 130/64
[2019-05-18 12:00] VITALS: BP 128/71
--- NOTE | 2019-05-18 15:38 | NUR ---
BETTINA spoke with , initiated transfer to [place]. to contact dtr and update. Faxed clinical info to [phone]. Started ambulance transfer form and EMTALA, forms on chart and need to be completed prior to dc.
[2019-05-18 16:00] VITALS: BP 137/63
[2019-05-18 19:30] VITALS: BP 122/53
[2019-05-19 00:09] VITALS: BP 113/47
[2019-05-19 04:28] VITALS: BP 120/44
[2019-05-19 05:19] LABS: ABSOLUTE EOSINOPHILS 0.1 thou/uL (0.0-0.7); ABSOLUTE LYMPHOCYTES 1.4 thou/uL (0.8-5.3); ABSOLUTE MONOCYTES 0.9 thou/uL (0.0-1.2); ABSOLUTE NEUTROPHILS 14.6 thou/uL (1.6-8.1); BASOPHILS 0.2 %; EOSINOPHILS 0.4 %; HEMATOCRIT 32.1 % (37.0-47.0); LYMPHOCYTES 8.3 %; MCH 29.4 pg (26.0-34.0); MCHC 32.9 g/dL (28.0-37.0); MCV 89.5 fL (80.0-100.0); MONOCYTES 5.3 %; MPV 8.7 fl. (7.2-11.1); NUCLEATED RBCS 0 /100WBC; POLYS 85.8 %; RBC 3.58 mil/uL (4.20-5.00)
[2019-05-19 05:27] LABS: HEMOGLOBIN 10.5 gm/dL (12.0-15.0); PLATELET COUNT* 249 thou/uL (150-400)
[2019-05-19 05:41] LABS: CREATININE 1.4 mg/dL (0.6-1.3); POTASSIUM 4.4 mmol/L (3.5-5.1)
--- NOTE | 2019-05-19 06:02 | NUR ---
ASSUMED CARE OF PATIENT AT APPROX 1930. ALERT AND ORIENTED X4. ASSESSMENT COMPLETED AND CHARTED. VSS ON ROOM AIR. COMPLAINT OF BACK/RIGHT SIDE PAIN ADDRESSED WITH NORCO AND REPOSITIONING. LOVE IN PLACE AND DRAINING DEPENDENTLY. ANTIBIOTICS INFUSED ORDERED. FALL PRECAUTIONS IN PLACE. CALL LIGHT WITHIN REACH. HOURLY ROUNDS COMPLETED. WILL CONTINUE WITH PLAN OF CARE.
[2019-05-19 08:35] VITALS: BP 135/53
--- NOTE | 2019-05-19 09:34 | NUR ---
Spoke with [facility], they are still reviewing the case, once they are done reviewing and considering they will contact here to discuss. Updated Following.
--- NOTE | 2019-05-19 12:33 | NUR ---
Pt transferring to [facility], dtr in room and aware of POC. EMTALA form completed, copy to be sent with Pt. Ambulance to [facility] and transport at 230. Chart copied. Nurse report number is [id number]. Pt accepted under the care of Dr Paris to room 216.
[2019-05-19 12:51] VITALS: BP 115/45
--- NOTE | 2019-05-19 15:24 | NUR ---
ASSUMED PT CARE AT 0730. ASSESSMENT COMPLETED CHARTED. ABLE TO MAKE NEEDS KNOWN. NO C/O PAIN OR DISCOMFORT. UP TO RECLINER FOR MEALS. CALL LIGHT WITHIN REACH. [facility] ACCEPTED PT. 2L O2. AMBULANCE WITH BED CAME TO [facility] PT AROUND 1445. ALL BELONGINGS TAKEN WITH PT DAUGHTER. HEART MONITOR REMOVED, IV AND LOVE KEPT IN PLACE FOR NURSES. CALLED REPORT TO HOSPITAL TO [facility] AT 1500. NO COMPLAINTS, COMMENTS, OR QUESTIONS NOTED.
--- NOTE | 2019-05-20 08:36 | CON ---
[address] [address] CONSULTATION Name: OCTAVIA DEE Room: [address] IN M.R.#: [id number] Admission: 05/06/19 Attend Phys: Zack Shelley Discharge: 05/19/19 Date of : 40 Report #: [id number] THIS REPORT FOR: //name// CC: Ibrahima Quintero DATE OF SERVICE: 05/10/2019 REFERRING PHYSICIAN: Christophe Quintero DO REASON FOR NEPHROLOGY CONSULTATION: Acute kidney injury on likely chronic kidney disease. REASON FOR ADMISSION: Shortness of breath. HISTORY OF PRESENT ILLNESS: The patient is a pleasant 78-year-old female with past medical history of hypertension, history of stroke, brain tumor, dementia, and chronic urinary frequency and came in because of shortness of breath, she was diagnosed with a right-sided pneumonia with loculated pleural effusion. She also needs a thoracentesis during this admission. She still has significant pleural effusion on the right side, being treated with antibiotics. When she came in, her creatinine was 2.0. Subsequently, creatinine kept going up to 2.2, 2.63, 2.6 yesterday, and today is 2.5. She was eventually started on IV fluids. She was being given losartan which is one of her home medications as well as ibuprofen, and her last dose of losartan was on 05/07/2019 and last dose of ibuprofen was on 05/08/2019. She was also found to be retaining urine. It seems like a Roberts catheter was placed yesterday with good urine output of 1850 mL. The patient is currently oriented to place, oriented to person, but otherwise not aware of other things. She is not in any acute distress right now. No diarrhea reported. I have a creatinine in the range of 1.1 to 1.3 from 2018. I do not have labs from last year. Renal ultrasound did not show hydronephrosis. Reportedly, her blood pressure also was running a little low 2 days ago at 89/59. She had an echocardiogram checked also during this hospital course, which showed grade 1 diastolic dysfunction, 60-65% EF, and 40-45 mmHg RVSP. She also has a history of atrial fibrillation, maintained on Xarelto for that. ALLERGIES: No known drug allergies. REVIEW OF SYSTEMS: Not able to obtain from the patient because of her mentation. PAST MEDICAL HISTORY: Includes hypertension, brain tumor, seasonal allergies, possibly chronic kidney disease, constipation, lazy eye, dementia, stroke, chronic urinary frequency, [place] [address] CONSULTATION Name: OCTAVIA DEE Room: [address] IN M.R.#: [id number] Admission: 05/06/19 Attend Phys: Zack Shelley Discharge: 05/19/19 Date of : 40 Report #: [id number] PAST SURGICAL HISTORY: Tonsillectomy and hysterectomy. FAMILY HISTORY: Dad had TIA. SOCIAL HISTORY: She does not use tobacco, alcohol, or recreational drugs. MEDICATIONS AT HOME: According to the patient's chart, the patient is on amlodipine, losartan, atenolol, loratadine, atorvastatin, aspirin, multivitamin with minerals, calcium carbonate, vitamin D3, memantine, psyllium husk, and alendronate sodium. PHYSICAL EXAMINATION: VITAL SIGNS: Blood pressure is 139/48, pulse ox is 93% on 2 liters of oxygen by nasal cannula, pulse rate is 58, temperature is 36.3, and respiratory rate is 20. GENERAL: She is awake, alert, and oriented to self and place. HEAD AND EYES: Atraumatic and normocephalic. EARS, NOSE, AND THROAT: Normal ears and nose. Mucous membranes are moist. NECK: No JVD. CHEST: Bilaterally diminished breath sounds, more so on the right side. CARDIOVASCULAR: S1, S2 normal. No murmurs. ABDOMEN: Soft, nondistended, and nontender. Bowel sounds present. EXTREMITIES: Lower extremities, there is no lower extremity edema. NEUROLOGICAL FUNCTION: She is not completely oriented. Generalized weakness. PSYCHIATRIC: Not able to assess. LABORATORY DATA: WBC is 26.9, hemoglobin is 11.9, and platelet count is 318. Sodium is 134, potassium is 5.2, BUN is 104, CO2 is 26, and creatinine is 2.5. Other labs were reviewed. IMAGING: Renal ultrasound, chest x-ray, and chest CT were reviewed. ASSESSMENT: 1. Acute kidney injury on possible chronic kidney disease, stage 3. Her creatinine was 1.1 to 1.3 in 2018, creatinine peaked at 3.0 at this time. Admission creatinine was 2.0, acute kidney injury in the setting of intravascular volume depletion, urinary retention, use of losartan and ibuprofen, as well as hypertensive episodes. Renal ultrasound showed 2 cysts on the right kidney, which looked simple in nature but no hydronephrosis. UA showed 3+ blood, but only 0-2 rbc's per high power field with 10-30 bacteria. 2. Hyponatremia which is improving, as her blood glucose is improving, hyponatremia. 3. Mild hyperkalemia in the setting of renal insufficiency as well as hyperglycemia. 4. Uncontrolled diabetes type 2, hemoglobin A1c 9.2%. Primary team is managing [facility] [address] [place] [address] CONSULTATION Name: OCTAVIA DEE Room: [address] IN .R.#: [id number] Admission: 05/06/19 Attend Phys: Zack Shelley Discharge: 05/19/19 Date of : 40 Report #: [id number] that. 5. History of hypertension. Blood pressure at times has been running low. Her losartan is on hold. 6. Urinary retention, has a Roberts catheter. 7. History of atrial fibrillation, on Xarelto. Cardiology is following. 8. Right-sided pneumonia with loculated pleural effusion and this is community-acquired pneumonia, likely because Streptococcus pneumoniae and primary team is treating that. 9. Acute respiratory failure with hypoxia because of pneumonia. 10. History of dementia. PLAN: 1. Please make sure the patient is on a renal diet and please make sure all nephrotoxic agents are on hold including NSAIDs. No JW or ARB right now. 2. Continue with gentle hydration, normal saline at 50 mL an hour, so far creatinine is slowly improving. CPK checked and was only 107. 3. Try to keep her MAP around 65-70. 4. Strict I's and O's. 5. A.m. labs. Thank you for this consultation. We will continue to follow with you. Discussed with the patient and nurse. Continue Roberts for now. <ELECTRONICALLY SIGNED> By: Kaye White MD 05/20/19 0836 1031 1122Amitpriyanka White MD /matty
--- NOTE | 2019-05-25 13:43 | EKG ---
[place] [address] ELECTROCARDIOGRAM REPORT Name: OCTAVIA DEE Room: [address] DIS IN M.R.#: [id number] Admission: 05/06/19 Attend Phys: Zack Shelley Discharge: 05/19/19 Date of : 40 Report #: [id number] THIS REPORT FOR: //name// [facility] Test Date: 2019-05-10 Test Time: 12:02:25 Pat Name: OCTAVIA DEE Department: Room: [address] Gender: F Second Steward: : 1940 Requested By: Melissa Danielson Order Number: [id number] Jair MD: Richard Kauffman Measurements Intervals [place] Rate: 59 P: 43 ME: 156 QRS: 11 QRSD: 91 T: 4 QT: 475 QTc: 471 Interpretive Statements Sinus rhythm Anterior infarct, old Borderline T abnormalities, inferior leads Compared to ECG 05/09/2019 11:47:53 No significant changes Electronically Signed On 05-10-2019 14:58:57 [employer] SALES CONSULTANT by Richard Kauffman [email or web address] <ELECTRONICALLY SIGNED> By: Richard Kauffman MD, FAC 05/10/19 1458 1202 1202 Richard Kauffman MD, [facility] /EPI
== END 2019-05-19 14:54 | disposition short-term general hospital (02) | DRG 871 ==
LOC: M.ERS 13:47 → M.TBA-ER 15:51 → M.2W 15:51
PROVIDERS: Family Medicine; Internal Medicine; Internal Medicine Infectious Disease; Internal Medicine Pulmonary Disease; ADMIT Internal Medicine
PROC: 0W993ZZ Drainage of Right Pleural Cavity, Percutaneous Approach (ICD-10-PCS; principal; 2019-05-10)
DX: A40.3 Sepsis due to Streptococcus pneumoniae (principal); E11.00 Type 2 diabetes mellitus with hyperosmolarity without nonketotic hyperglycemic-hyperosmolar coma (NKHHC); J13 Pneumonia due to Streptococcus pneumoniae; J96.01 Acute respiratory failure with hypoxia; I50.33 Acute on chronic diastolic (congestive) heart failure; J86.9 Pyothorax without fistula; E87.1 Hypo-osmolality and hyponatremia; N17.9 Acute kidney failure, unspecified; N39.0 Urinary tract infection, site not specified; J98.11 Atelectasis; J90 Pleural effusion, not elsewhere classified; G93.40 Encephalopathy, unspecified; I13.0 Hypertensive heart and chronic kidney disease with heart failure and stage 1 through stage 4 chronic kidney disease, or unspecified chronic kidney disease; R33.9 Retention of urine, unspecified; E86.0 Dehydration; N18.9 Chronic kidney disease, unspecified; E11.22 Type 2 diabetes mellitus with diabetic chronic kidney disease; I27.20 Pulmonary hypertension, unspecified; M81.0 Age-related osteoporosis without current pathological fracture; E78.5 Hyperlipidemia, unspecified; K58.9 Irritable bowel syndrome, unspecified; I48.0 Paroxysmal atrial fibrillation; E11.65 Type 2 diabetes mellitus with hyperglycemia; E87.5 Hyperkalemia; R35.0 Frequency of micturition; G30.9 Alzheimer's disease, unspecified; F02.80 Dementia in other diseases classified elsewhere, unspecified severity, without behavioral disturbance, psychotic disturbance, mood disturbance, and anxiety; J98.01 Acute bronchospasm; J30.2 Other seasonal allergic rhinitis; E66.01 Morbid (severe) obesity due to excess calories; Z68.36 Body mass index [BMI] 36.0-36.9, adult; Z86.73 Personal history of transient ischemic attack (TIA), and cerebral infarction without residual deficits; Z79.899 Other long term (current) drug therapy; Z79.82 Long term (current) use of aspirin; Z90.710 Acquired absence of both cervix and uterus; Z79.01 Long term (current) use of anticoagulants; Z82.49 Family history of ischemic heart disease and other diseases of the circulatory system; Z86.011 Personal history of benign neoplasm of the brain; Z79.84 Long term (current) use of oral hypoglycemic drugs